=== PATIENT | female | born 1930 | race Caucasian/White ===

== ENCOUNTER 2017-08-27 18:26 | Inpatient (IN) | payer MEDICARE ==
[~2017-08-27] VITALS: Ht 152.4 cm; Wt 70.4 kg
[2017-08-27 20:52] VITALS: BP 137/56
[2017-08-27] MEDS ORDERED: ACETAMINOPHEN 325 MG TABLET PO PRN (21:15)
[2017-08-27] MEDS ORDERED: MAG HYDROX/AL HYDROX/SIMETH 30 ML ORAL.SUSP PO PRN (21:15)
[2017-08-27] MEDS ORDERED: METHYL SALICYLATE/MENTHOL TOPICAL OINTMENT 29GM TUBE. TP PRN (21:15)
[2017-08-27] MEDS ORDERED: MAGNESIUM HYDROXIDE 2,400 MG/30 ML ORAL.SUSP. PO PRN (21:15)
--- NOTE | 2017-08-27 21:41 | HP ---
ADMIT DATE: 08/27/2017 PSYCHIATRIC ADMISSION HISTORY/EVALUATION IDENTIFYING DATA: The patient is an 87-year-old female referred to us from [facility] Room where she presented with her daughter, Hanh Cuellar, who is her court-appointed temporary guardian. The patient has been increasingly paranoid, confused, delusional, refusing medications, accusing family and staff of trying to kill her. She was in an assisted living till the 07/05/2017, getting increasingly agitated there and threw a statue off the balcony at the assisted living. Adjustments in her psychotropics have been attempted, but she has failed all of these resulting in this referral. CHIEF COMPLAINT: "I know about all you people. There is nothing wrong with my mind. People are always trying to do things. They are trying to trick me into things." HISTORY OF PRESENT ILLNESS: The patient has a history of some short-term memory deficits, but more significantly she has been increasingly paranoid, delusional with marked mood lability, irritability. She has had sleep and appetite changes. No active suicidal or homicidal ideation. No clear history of bipolar disorder. PAST PSYCHIATRIC HISTORY: As above. PAST MEDICAL HISTORY: Medical history is positive for recurrent UTIs, hyperlipidemia. ALLERGIES: CODEINE, PENICILLIN, SULFA. She is referred by her primary care physician, Dr. Maldonado, in [facility]. DIET: Regular. Ambulates with a walker. CURRENT PSYCHOTROPICS: EMRAD was reviewed. FAMILY HISTORY: Noncontributory. 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 No alcohol or drug abuse, physical, sexual or elder abuse history is noted. She is not known to be a perpetrator. REACTION TO HOSPITALIZATION: the patient not accepting of it. Her daughter is her guardian, who has arranged this hospitalization. ASSETS: Supportive family. MENTAL STATUS EXAMINATION: The patient was seen individually in her room the evening of 08/27/2017 shortly after she arrived on the unit. She is oriented to herself, unaware of where she was, said she lives in [facility]. Speech is coherent, rapid. Abstraction is fair. Computation is impaired. She refused to answer orientation questions "these a trick questions." She was extremely paranoid about family and everyone around her, quite irritable, labile. Attention span short. Language function intact. No suicidal or homicidal ideation. IMPRESSION: Major depressive disorder with psychotic features; psychotic disorder, unspecified; major neurocognitive disorder, early Alzheimer, vascular with depression, delusion; impulse control disorder. Rest as above. PLAN: Admit to Geropsychiatry Unit at [facility]. I will see the patient daily individually from a psychiatric standpoint. Medical followup per Dr. Kinsey/Dr Shay. Continue the patient on her current psychotropics, observe baseline, then adjust further as clinically indicated. MAN Charli PATTON MD DR: LOBO/rick JOB#: [id number] / [id number]
[2017-08-27] MEDS ORDERED: MEMA5TAB PO (21:49)
[2017-08-27] MEDS ORDERED: PANT40TA5 PO (21:49)
[2017-08-27] MEDS ORDERED: FOLI1TAB16 PO (21:49)
[2017-08-27] MEDS ORDERED: DONE10TA7 PO (21:49)
[2017-08-27] MEDS ORDERED: FURO40TA4 PO (21:49)
[2017-08-27] MEDS ORDERED: ATOR20TA58 PO (21:49)
[2017-08-27] MEDS ORDERED: ASPI-630 PO (21:49)
[2017-08-27] MEDS ORDERED: ESCITALOPRAM OX20 MG PO (21:49)
[2017-08-27] MEDS ORDERED: ASCO500T2 PO (21:49)
[2017-08-27] MEDS ORDERED: CHOL10003 PO (21:49)
[2017-08-27] MEDS ORDERED: MULT-460 PO (21:49)
[2017-08-27] MEDS ORDERED: LOSA100T6 PO (21:49)
[2017-08-27] MEDS ORDERED: CEPH500C PO (21:53)
--- NOTE | 2017-08-27 22:54 | PDOC ---
Exam Note: Abrahan Note: Please also refer to the separate dictated note~for this date of service dictated separately.~Patient seen individually. Discussed the patient with Nursing staff reviewed the chart.~Reviewed interim history and current functioning. Reviewed vital signs,~Labs/ Radiology~and current medications noted below. Continue current treatment with the changes noted in the dictated addendum note Assessment: Vital Signs: Vital Signs Date Time Temp Pulse Resp B/P (MAP) Pulse Ox O2 Delivery O2 Flow Rate FiO2 08/27/17 20:52 97.5 63 18 137/56 (83) 99 Current Medications: Meds: Current Medications Acetaminophen (Tylenol) 650 mg PRN Q6HRS PRN PO PAIN / TEMP; Start 08/27/17 at 21:15 Multi-Ingredient Ointment (Analgesic [place]) 1 vidhi PRN QID PRN TP MUSCLE PAIN; Start 08/27/17 at 21:15 Al Hydroxide/Mg Hydroxide (Mylanta Plus Xs) 15 ml PRN AFTMEALHC PRN PO DYSPEPSIA; Start 08/27/17 at 21:15 Magnesium Hydroxide (Milk Of Magnesia) 2,400 mg PRN QHS PRN PO CONSTIPATION; Start 08/27/17 at 21:15 Olanzapine (ZyPREXA ZYDIS) 2.5 mg PRN Q2HR PRN PO ANXIETY / AGITATION; Start at 21:15 Donepezil HCl (Aricept) 10 mg DAILY PO ; Start 08/28/17 at 09:00 Citalopram Hydrobromide (CeleXA) 40 mg DAILY PO ; Start 08/28/17 at 09:00 Memantine (Namenda) 5 mg DAILY PO ; Start 08/28/17 at 09:00 Active Scripts Active Reported Cephalexin 500 Mg Capsule 500 Mg PO TIDX7 DAYS Multiple Vitamin (Multivitamin With Minerals) 1 Each Tablet 1 Tab PO DAILY Folic Acid 1 Mg Tablet 1 Mg PO DAILY Vitamin D3 (Cholecalciferol (Vitamin D3)) 1,000 Unit Tablet 2,000 Unit PO DAILY Aspirin 81 Mg Tab.chew 81 Mg PO DAILY Vitamin C (Ascorbic Acid) 500 Mg Tablet 500 Mg PO DAILY Pantoprazole Sodium 40 Mg Tablet.dr 40 Mg PO DAILY Namenda (Memantine Hcl) 5 Mg Tablet 5 Mg PO DAILY Losartan Potassium 100 Mg Tablet 100 Mg PO DAILY Furosemide 40 Mg Tablet 40 Mg PO DAILY Escitalopram Oxalate 20 Mg Tablet 20 Mg PO DAILY Donepezil Hcl 10 Mg Tablet 10 Mg PO DAILY Atorvastatin Calcium 20 Mg Tablet 20 Mg PO QHS I have reviewed the current psychotropics carefully including drug interactions. Risk benefit ratio favors no change other than as noted in my dictated progress note. Diagnosis: Problems: (1) Anxiety disorder (2) Dementia, vascular, with delusions (3) Dementia, vascular, with depression (4) Impulse control disorder (5) Psychosis, atypical (6) Mild cognitive disorder (7) Major depressive disorder, recurrent episode KENDRA PATTON MD August 27, 2017 22:54
[2017-08-28 05:20] VITALS: BP 138/62
[2017-08-28] MEDS: DONEPEZIL HCL 10 MG TABLET PO SCH (07:51)
[2017-08-28 08:52] LABS: BASO # 0.1 x10^3/uL (0.0-0.2); BASO % 1 % (0-3); EOS # 0.5 x10^3/uL (0.0-0.7); EOS % 9 % (0-3); HEMATOCRIT 35.8 % (36.0-47.0); HEMOGLOBIN 12.1 g/dL (12.0-15.5); LYMPH # 1.4 x10^3/uL (1.0-4.8); LYMPH % 26 % (24-48); MEAN CORPUSCULAR HEMOGLOBIN 31 pg (25-35); MEAN CORPUSCULAR HGB CONC 34 g/dL (31-37); MEAN CORPUSCULAR VOLUME 91 fL (79-100); MONO # 0.5 x10^3/uL (0.0-1.1); MONO % 9 % (0-9); NEUT # 2.9 x10^3uL (1.8-7.7); NEUT % 55 % (31-73); PLATELET COUNT 327 x10^3/uL (140-400); RED BLOOD COUNT 3.93 x10^6/uL (3.50-5.40); RED CELL DISTRIBUTION WIDTH 15.4 % (11.5-14.5); WHITE BLOOD COUNT 5.2 x10^3/uL (4.0-11.0)
[2017-08-28] MEDS ORDERED: CITALOPRAM 20 MG TABLET. PO SCH (09:00)
[2017-08-28] MEDS ORDERED: MEMANTINE 5 MG TABLET. PO SCH (09:00)
[2017-08-28 09:09] LABS: ALBUMIN 3.4 g/dL (3.4-5.0); ALBUMIN/GLOBULIN RATIO 0.9 (1.0-1.7); CALCIUM 9.3 mg/dL (8.5-10.1); CREATININE 1.1 mg/dL (0.6-1.0); GFR 46.8; MAGNESIUM 2.1 mg/dL (1.8-2.4); POTASSIUM 3.9 mmol/L (3.5-5.1); TOTAL BILIRUBIN 0.8 mg/dL (0.2-1.0); TOTAL PROTEIN 7.3 g/dL (6.4-8.2)
[2017-08-28 10:18] LABS: THYROID STIM HORMONE (TSH) 4.595 uIU/mL (0.358-3.740)
[2017-08-28 14:07] LABS: T3 TOTAL 108 ng/dL (71-180); THYROXINE 8.2 ug/dL (4.5-12.0)
[2017-08-28] MEDS: CEPHALEXIN 250 MG CAPSULE PO SCH ×2 (15:44→20:46)
--- NOTE | 2017-08-28 16:30 | PDOC1 ---
History of Present Illness Reason for Visit: Paranoid History of Present Illness Pt sent to [facility] for evaluation in [facility] unit due to being paranoid and delusional. Pt has reportedly been accusing family and staff of trying to kill her. Apparently this started about 2 weeks ago. Pt is a poor historian and does not give any meaningful history, other than "I want to go home, get me out of here. " Per nursing, she has been doing ok since receiving a PRN dose of Zyprexa earlier today. Allergies: Coded Allergies: Penicillins (Verified Allergy, Unknown, 08/27/17) Sulfa (Sulfonamide Antibiotics) (Verified Allergy, Unknown, 08/27/17) codeine (Verified Allergy, Unknown, 08/27/17) Past Medical History Cardiac: hyperipidemia Psych: Depression Renal/: UTI Past Surgical History: No pertinent history Family History: No pertinent hx Past Social History Smoke: No Alcohol: none Drugs: None Lives: Alone Review of Systems Review Of Systems ROS unobtainable due to pt's mental status Medications Current Medications Acetaminophen (Tylenol) 650 mg PRN Q6HRS PRN PO PAIN / TEMP; Start 08/27/17 at 21:15 Multi-Ingredient Ointment (Analgesic [place]) 1 vidhi PRN QID PRN TP MUSCLE PAIN; Start 08/27/17 at 21:15 Al Hydroxide/Mg Hydroxide (Mylanta Plus Xs) 15 ml PRN AFTMEALHC PRN PO DYSPEPSIA; Start 08/27/17 at 21:15 Magnesium Hydroxide (Milk Of Magnesia) 2,400 mg PRN QHS PRN PO CONSTIPATION; Start 08/27/17 at 21:15 Olanzapine (ZyPREXA ZYDIS) 2.5 mg PRN Q2HR PRN PO ANXIETY / AGITATION Last administered on 08/28/17at 07:51; Start 08/27/17 at 21:15 Donepezil HCl (Aricept) 10 mg DAILY PO Last administered on 08/28/17at 07:51; Start 08/28/17 at 09:00 Citalopram Hydrobromide (CeleXA) 40 mg DAILY PO Last administered on 08/28/17at 07:51; Start 08/28/17 at 09:00 Memantine (Namenda) 5 mg DAILY PO Last administered on 08/28/17at 07:51; Start 08/28/17 at 09:00 Ascorbic Acid (Vitamin C) 500 mg DAILY PO ; Start 08/29/17 at 09:00 Atorvastatin Calcium (Lipitor) 20 mg QHS PO ; Start 08/28/17 at 21:00 Vitamin D (Vitamin D3) 2,000 unit DAILY PO ; Start 08/29/17 at 09:00 Aspirin (Children'S Aspirin) 81 mg DAILYWBKFT PO ; Start 08/29/17 at 08:00 Cephalexin HCl (Keflex) 500 mg TID PO Last administered on 08/28/17at 15:44; Start 08/28/17 at 14:00; Stop 09/04/17 at 14:01 Folic Acid (Folic Acid) 1 mg DAILY PO ; Start 08/29/17 at 09:00 Furosemide (Lasix) 40 mg DAILY PO ; Start 08/29/17 at 09:00 Losartan Potassium (Cozaar) 100 mg DAILY PO ; Start 08/29/17 at 09:00 Multivitamins/ Calcium (Thera-M Plus) 1 tab DAILY PO ; Start 08/29/17 at 09:00 Pantoprazole Sodium (Protonix) 40 mg DAILY PO ; Start 08/29/17 at 09:00 Active Scripts Active Reported Cephalexin 500 Mg Capsule 500 Mg PO TIDX7 DAYS Multiple Vitamin (Multivitamin With Minerals) 1 Each Tablet 1 Tab PO DAILY Folic Acid 1 Mg Tablet 1 Mg PO DAILY Vitamin D3 (Cholecalciferol (Vitamin D3)) 1,000 Unit Tablet 2,000 Unit PO DAILY Aspirin 81 Mg Tab.chew 81 Mg PO DAILY Vitamin C (Ascorbic Acid) 500 Mg Tablet 500 Mg PO DAILY Pantoprazole Sodium 40 Mg Tablet.dr 40 Mg PO DAILY Namenda (Memantine Hcl) 5 Mg Tablet 5 Mg PO DAILY Losartan Potassium 100 Mg Tablet 100 Mg PO DAILY Furosemide 40 Mg Tablet 40 Mg PO DAILY Escitalopram Oxalate 20 Mg Tablet 20 Mg PO DAILY Donepezil Hcl 10 Mg Tablet 10 Mg PO DAILY Atorvastatin Calcium 20 Mg Tablet 20 Mg PO QHS Exam Vital Signs Vital Signs Date Time Temp Pulse Resp B/P (MAP) Pulse Ox O2 Delivery O2 Flow Rate FiO2 08/28/17 05:20 97.4 62 16 138/62 (87) 98 General Appearance: Alert, Cooperative, No acute distress, Other (Oriented to person only) HEENT: Atraumatic, PERRLA, EOMI, Mucous membr. moist/pink, Other (Neck without JVD or LAD) Respiratory: Clear to auscultation Heart: Regular rate, Normal S1, Normal S2, No murmurs Abdominal: Normal bowel sounds, Soft, No tenderness, No hepatospenomegaly, No masses Extremities: No clubbing, No cyanosis, Normal pulses, No tenderness/swelling, Other (Mild BLE edema, 1-2+) Skin: No rashes, No breakdown Neuro: Other (No focal abnormalities) Psych/Mental Status: Other (Stable, confused) Assessment/Plan Assessment/Plan Dementia w/ behaviors: Per Dr. Campo HLP: Cont home meds Low TSH: No change in meds, f/u on T4. Elevated alk phos: Add GGT, recheck in AM. Hx UTI: Await urine sample. dVT proph: Pt is ambulatory, no indication for pharmacologic prophylaxis COURSE Allergies Coded Allergies Type Severity Reaction Last Updated Verified Penicillins Allergy Unknown 08/27/17 Yes Sulfa (Sulfonamide Antibiotics) Allergy Unknown 08/27/17 Yes codeine Allergy Unknown 08/27/17 Yes Laboratory Tests Test 08/28/17 07:50 White Blood Count 5.2 x10^3/uL (4.0-11.0) Red Blood Count 3.93 x10^6/uL (3.50-5.40) Hemoglobin 12.1 g/dL (12.0-15.5) Hematocrit 35.8 % (36.0-47.0) Mean Corpuscular Volume 91 fL (79-100) Mean Corpuscular Hemoglobin 31 pg (25-35) Mean Corpuscular Hemoglobin Concent 34 g/dL (31-37) Red Cell Distribution Width 15.4 % (11.5-14.5) Platelet Count 327 x10^3/uL (140-400) Neutrophils (%) (Auto) 55 % (31-73) Lymphocytes (%) (Auto) 26 % (24-48) Monocytes (%) (Auto) 9 % (0-9) Eosinophils (%) (Auto) 9 % (0-3) Basophils (%) (Auto) 1 % (0-3) Neutrophils # (Auto) 2.9 x10^3uL (1.8-7.7) Lymphocytes # (Auto) 1.4 x10^3/uL (1.0-4.8) Monocytes # (Auto) 0.5 x10^3/uL (0.0-1.1) Eosinophils # (Auto) 0.5 x10^3/uL (0.0-0.7) Basophils # (Auto) 0.1 x10^3/uL (0.0-0.2) Sodium Level 140 mmol/L (136-145) Potassium Level 3.9 mmol/L (3.5-5.1) Chloride Level 103 mmol/L (98-107) Carbon Dioxide Level 26 mmol/L (21-32) Anion Gap 11 (6-14) Blood Urea Nitrogen 19 mg/dL (7-20) Creatinine 1.1 mg/dL (0.6-1.0) Estimated GFR (Cockcroft-Gault) 46.8 BUN/Creatinine Ratio 17 (6-20) Glucose Level 97 mg/dL (70-99) Calcium Level 9.3 mg/dL (8.5-10.1) Magnesium Level 2.1 mg/dL (1.8-2.4) Iron Level 89 ug/dL (50-170) Total Iron Binding Capacity 279 ug/dL (250-450) Iron Saturation 32 % (15-34) Total Bilirubin 0.8 mg/dL (0.2-1.0) Aspartate Amino Transf (AST/SGOT) 23 U/L (15-37) Alanine Aminotransferase (ALT/SGPT) 19 U/L (14-59) Alkaline Phosphatase 194 U/L (46-116) Total Protein 7.3 g/dL (6.4-8.2) Albumin 3.4 g/dL (3.4-5.0) Albumin/Globulin Ratio 0.9 (1.0-1.7) Triglycerides Level 86 mg/dL (0-150) Cholesterol Level 129 mg/dL (0-200) LDL Cholesterol, Calculated 74 mg/dL (0-100) VLDL Cholesterol, Calculated 17 mg/dL (0-40) Non-HDL Cholesterol Calculated 91 mg/dL (0-129) HDL Cholesterol 38 mg/dL (40-60) Cholesterol/HDL Ratio 3.0 Thyroid Stimulating Hormone (TSH) 4.595 uIU/mL (0.358-3.740) Thyroxine (T4) 8.2 ug/dL (4.5-12.0) Total Triiodothyronine 108 ng/dL (71-180) Current Medications Medications (Trade) Dose Ordered Sig/Yovany Route PRN Reason Start Time Stop Time Status Last Admin Dose Admin Acetaminophen (Tylenol) 650 mg PRN Q6HRS PRN PO PAIN / TEMP 08/27/17 21:15 Multi-Ingredient Ointment (Analgesic [place]) 1 vidhi PRN QID PRN TP MUSCLE PAIN 08/27/17 21:15 Al Hydroxide/Mg Hydroxide (Mylanta Plus Xs) 15 ml PRN AFTMEALHC PRN PO DYSPEPSIA 08/27/17 21:15 Magnesium Hydroxide (Milk Of Magnesia) 2,400 mg PRN QHS PRN PO CONSTIPATION 08/27/17 21:15 Olanzapine (ZyPREXA ZYDIS) 2.5 mg PRN Q2HR PRN PO ANXIETY / AGITATION 08/27/17 21:15 08/28/17 07:51 Donepezil HCl (Aricept) 10 mg DAILY PO 08/28/17 09:00 08/28/17 07:51 Citalopram Hydrobromide (CeleXA) 40 mg DAILY PO 08/28/17 09:00 08/28/17 07:51 Memantine (Namenda) 5 mg DAILY PO 08/28/17 09:00 08/28/17 07:51 Ascorbic Acid (Vitamin C) 500 mg DAILY PO 08/29/17 09:00 Atorvastatin Calcium (Lipitor) 20 mg QHS PO 08/28/17 21:00 Vitamin D (Vitamin D3) 2,000 unit DAILY PO 08/29/17 09:00 Aspirin (Children'S Aspirin) 81 mg DAILYWBKFT PO 08/29/17 08:00 Cephalexin HCl (Keflex) 500 mg TID PO 08/28/17 14:00 09/04/17 14:01 08/28/17 15:44 Folic Acid (Folic Acid) 1 mg DAILY PO 08/29/17 09:00 Furosemide (Lasix) 40 mg DAILY PO 08/29/17 09:00 Losartan Potassium (Cozaar) 100 mg DAILY PO 08/29/17 09:00 Multivitamins/ Calcium (Thera-M Plus) 1 tab DAILY PO 08/29/17 09:00 Pantoprazole Sodium (Protonix) 40 mg DAILY PO 08/29/17 09:00 I & O 08/28/17 00:00 Intake Total 0 ml Balance 0 ml Vital Signs Date Time Temp Pulse Resp B/P (MAP) Pulse Ox O2 Delivery O2 Flow Rate FiO2 08/28/17 05:20 97.4 62 16 138/62 (87) 98 RAISSA ARAYA MD August 28, 2017 16:30
[2017-08-28 16:48] VITALS: BP 102/52
[2017-08-28] MEDS: ATORVASTATIN CALCIUM 20 MG TABLET PO SCH (20:49)
[2017-08-28] MEDS: MEMANTINE 5 MG TABLET. PO SCH (20:49)
--- NOTE | 2017-08-28 20:53 | PDOC ---
Exam Note: Abrahan Note: Please also refer to the separate dictated note~for this date of service dictated separately.~Patient seen individually. Discussed the patient with Nursing staff reviewed the chart.~Reviewed interim history and current functioning. Reviewed vital signs,~Labs/ Radiology~and current medications noted below. Continue current treatment with the changes noted in the dictated addendum note Assessment: Vital Signs: Vital Signs Date Time Temp Pulse Resp B/P (MAP) Pulse Ox O2 Delivery O2 Flow Rate FiO2 08/28/17 16:48 98.0 63 16 102/52 (69) 98 I&O Intake and Output 08/28/17 07:00 Intake Total 0 ml Balance 0 ml Intake Oral 0 ml Labs: Laboratory Tests Test 08/28/17 07:50 08/28/17 17:35 White Blood Count 5.2 x10^3/uL (4.0-11.0) Red Blood Count 3.93 x10^6/uL (3.50-5.40) Hemoglobin 12.1 g/dL (12.0-15.5) Hematocrit 35.8 % (36.0-47.0) L Mean Corpuscular Volume 91 fL (79-100) Mean Corpuscular Hemoglobin 31 pg (25-35) Mean Corpuscular Hemoglobin Concent 34 g/dL (31-37) Red Cell Distribution Width 15.4 % (11.5-14.5) H Platelet Count 327 x10^3/uL (140-400) Neutrophils (%) (Auto) 55 % (31-73) Lymphocytes (%) (Auto) 26 % (24-48) Monocytes (%) (Auto) 9 % (0-9) Eosinophils (%) (Auto) 9 % (0-3) H Basophils (%) (Auto) 1 % (0-3) Neutrophils # (Auto) 2.9 x10^3uL (1.8-7.7) Lymphocytes # (Auto) 1.4 x10^3/uL (1.0-4.8) Monocytes # (Auto) 0.5 x10^3/uL (0.0-1.1) Eosinophils # (Auto) 0.5 x10^3/uL (0.0-0.7) Basophils # (Auto) 0.1 x10^3/uL (0.0-0.2) Sodium Level 140 mmol/L (136-145) Potassium Level 3.9 mmol/L (3.5-5.1) Chloride Level 103 mmol/L (98-107) Carbon Dioxide Level 26 mmol/L (21-32) Anion Gap 11 (6-14) Blood Urea Nitrogen 19 mg/dL (7-20) Creatinine 1.1 mg/dL (0.6-1.0) H Estimated GFR (Cockcroft-Gault) 46.8 BUN/Creatinine Ratio 17 (6-20) Glucose Level 97 mg/dL (70-99) Calcium Level 9.3 mg/dL (8.5-10.1) Magnesium Level 2.1 mg/dL (1.8-2.4) Iron Level 89 ug/dL (50-170) Total Iron Binding Capacity 279 ug/dL (250-450) Iron Saturation 32 % (15-34) Total Bilirubin 0.8 mg/dL (0.2-1.0) Aspartate Amino Transferase (AST) 23 U/L (15-37) Alanine Aminotransferase (ALT) 19 U/L (14-59) Alkaline Phosphatase 194 U/L (46-116) H Total Protein 7.3 g/dL (6.4-8.2) Albumin 3.4 g/dL (3.4-5.0) Albumin/Globulin Ratio 0.9 (1.0-1.7) L Triglycerides Level 86 mg/dL (0-150) Cholesterol Level 129 mg/dL (0-200) LDL Cholesterol, Calculated 74 mg/dL (0-100) VLDL Cholesterol, Calculated 17 mg/dL (0-40) Non-HDL Cholesterol Calculated 91 mg/dL (0-129) HDL Cholesterol 38 mg/dL (40-60) L Cholesterol/HDL Ratio 3.0 Thyroid Stimulating Hormone (TSH) 4.595 uIU/mL (0.358-3.740) Thyroxine (T4) 8.2 ug/dL (4.5-12.0) Total Triiodothyronine (TT3) 108 ng/dL (71-180) Rapid Plasma Reagin Pending Gamma Glutamyl Transpeptidase 17 U/L (5-55) Current Medications: Meds: Current Medications Acetaminophen (Tylenol) 650 mg PRN Q6HRS PRN PO PAIN / TEMP; Start 08/27/17 at 21:15 Multi-Ingredient Ointment (Analgesic [place]) 1 vidhi PRN QID PRN TP MUSCLE PAIN; Start 08/27/17 at 21:15 Al Hydroxide/Mg Hydroxide (Mylanta Plus Xs) 15 ml PRN AFTMEALHC PRN PO DYSPEPSIA; Start 08/27/17 at 21:15 Magnesium Hydroxide (Milk Of Magnesia) 2,400 mg PRN QHS PRN PO CONSTIPATION; Start 08/27/17 at 21:15 Olanzapine (ZyPREXA ZYDIS) 2.5 mg PRN Q2HR PRN PO ANXIETY / AGITATION Last administered on 08/28/17at 07:51; Start 08/27/17 at 21:15 Donepezil HCl (Aricept) 10 mg DAILY PO Last administered on 08/28/17at 07:51; Start 08/28/17 at 09:00 Citalopram Hydrobromide (CeleXA) 40 mg DAILY PO Last administered on 08/28/17at 07:51; Start 08/28/17 at 09:00; Stop 08/28/17 at 20:09; Status DC Memantine (Namenda) 5 mg DAILY PO Last administered on 08/28/17at 07:51; Start 08/28/17 at 09:00; Stop 08/28/17 at 20:09; Status DC Ascorbic Acid (Vitamin C) 500 mg DAILY PO ; Start 08/29/17 at 09:00 Atorvastatin Calcium (Lipitor) 20 mg QHS PO Last administered on 08/28/17at 20: 49; Start 08/28/17 at 21:00 Vitamin D (Vitamin D3) 2,000 unit DAILY PO ; Start 08/29/17 at 09:00 Aspirin (Children'S Aspirin) 81 mg DAILYWBKFT PO ; Start 08/29/17 at 08:00 Cephalexin HCl (Keflex) 500 mg TID PO Last administered on 08/28/17at 20:46; Start 08/28/17 at 14:00; Stop 09/04/17 at 14:01 Folic Acid (Folic Acid) 1 mg DAILY PO ; Start 08/29/17 at 09:00 Furosemide (Lasix) 40 mg DAILY PO ; Start 08/29/17 at 09:00 Losartan Potassium (Cozaar) 100 mg DAILY PO ; Start 08/29/17 at 09:00 Multivitamins/ Calcium (Thera-M Plus) 1 tab DAILY PO ; Start 08/29/17 at 09:00 Pantoprazole Sodium (Protonix) 40 mg DAILY PO ; Start 08/29/17 at 09:00 Memantine (Namenda) 5 mg BID PO Last administered on 08/28/17at 20:49; Start at 21:00 Quetiapine Fumarate (SEROquel) 12.5 mg BID@0900,1300 PO ; Start 08/29/17 at 09: 00 Duloxetine HCl (Cymbalta) 30 mg DAILY PO ; Start 08/29/17 at 09:00 Active Scripts Active Reported Cephalexin 500 Mg Capsule 500 Mg PO TIDX7 DAYS Multiple Vitamin (Multivitamin With Minerals) 1 Each Tablet 1 Tab PO DAILY Folic Acid 1 Mg Tablet 1 Mg PO DAILY Vitamin D3 (Cholecalciferol (Vitamin D3)) 1,000 Unit Tablet 2,000 Unit PO DAILY Aspirin 81 Mg Tab.chew 81 Mg PO DAILY Vitamin C (Ascorbic Acid) 500 Mg Tablet 500 Mg PO DAILY Pantoprazole Sodium 40 Mg Tablet.dr 40 Mg PO DAILY Namenda (Memantine Hcl) 5 Mg Tablet 5 Mg PO DAILY Losartan Potassium 100 Mg Tablet 100 Mg PO DAILY Furosemide 40 Mg Tablet 40 Mg PO DAILY Escitalopram Oxalate 20 Mg Tablet 20 Mg PO DAILY Donepezil Hcl 10 Mg Tablet 10 Mg PO DAILY Atorvastatin Calcium 20 Mg Tablet 20 Mg PO QHS I have reviewed the current psychotropics carefully including drug interactions. Risk benefit ratio favors no change other than as noted in my dictated progress note. Diagnosis: Problems: (1) Anxiety disorder (2) Dementia, vascular, with delusions (3) Dementia, vascular, with depression (4) Impulse control disorder (5) Psychosis, atypical (6) Mild cognitive disorder (7) Major depressive disorder, recurrent episode KENDRA PATTON MD August 28, 2017 20:53
[2017-08-28 22:07] LABS: HEMOGLOBIN A1C 5.4 % (4.8-5.6)
[2017-08-29 05:59] VITALS: BP 137/61
[2017-08-29] MEDS: DONEPEZIL HCL 10 MG TABLET PO SCH (08:07)
[2017-08-29] MEDS: CEPHALEXIN 250 MG CAPSULE PO SCH ×3 (08:07→20:21)
[2017-08-29] MEDS: MEMANTINE 5 MG TABLET. PO SCH ×2 (08:07→20:21)
[2017-08-29] MEDS: FOLIC ACID 1 MG TABLET PO SCH (08:14)
[2017-08-29] MEDS: FUROSEMIDE 40 MG TABLET PO SCH (08:14)
[2017-08-29] MEDS: CHOLECALCIFEROL (VITAMIN D3) 1,000 UNIT TABLET PO SCH (08:14)
[2017-08-29] MEDS: ASPIRIN 81 MG TAB.CHEW PO SCH (08:14)
[2017-08-29] MEDS: DULoxetine HCL 30 MG CAPSULE.DR PO SCH (08:14)
[2017-08-29] MEDS: PANTOPRAZOLE 40 MG TABLET. PO SCH (08:14)
[2017-08-29] MEDS: ASCORBIC ACID 500 MG TABLET PO SCH (08:14)
[2017-08-29] MEDS: MULTIVITAMIN with MINERAL TABLET. PO SCH (08:14)
[2017-08-29] MEDS: LOSARTAN 50 MG TABLET. PO SCH (08:15)
[2017-08-29 08:47] LABS: ALBUMIN 3.1 g/dL (3.4-5.0); ALBUMIN/GLOBULIN RATIO 0.8 (1.0-1.7); CREATININE 1.1 mg/dL (0.6-1.0); GFR 46.8; TOTAL BILIRUBIN 0.6 mg/dL (0.2-1.0); TOTAL PROTEIN 6.9 g/dL (6.4-8.2)
[2017-08-29] MEDS: QUEtiapine 25 MG TABLET. PO SCH ×2 (09:44→13:02)
[2017-08-29 15:56] VITALS: BP 122/74
[2017-08-29] MEDS: ATORVASTATIN CALCIUM 20 MG TABLET PO SCH (20:21)
[2017-08-29] MEDS: LACTOBACILLUS RHAMNOSUS GG 1 CAPSULE. PO SCH (20:24)
--- NOTE | 2017-08-29 20:57 | PDOC ---
Exam Note: Abrahan Note: Please also refer to the separate dictated note~for this date of service dictated separately.~Patient seen individually. Discussed the patient with Nursing staff reviewed the chart.~Reviewed interim history and current functioning. Reviewed vital signs,~Labs/ Radiology~and current medications noted below. Continue current treatment with the changes noted in the dictated addendum note Assessment: Vital Signs: Vital Signs Date Time Temp Pulse Resp B/P (MAP) Pulse Ox O2 Delivery O2 Flow Rate FiO2 08/29/17 15:56 97.7 65 18 122/74 (90) 96 I&O Intake and Output 08/29/17 07:00 Intake Total 720 ml Balance 720 ml Intake Oral 720 ml Labs: Laboratory Tests Test 08/29/17 07:24 Sodium Level 142 mmol/L (136-145) Potassium Level 4.0 mmol/L (3.5-5.1) Chloride Level 104 mmol/L (98-107) Carbon Dioxide Level 29 mmol/L (21-32) Anion Gap 9 (6-14) Blood Urea Nitrogen 19 mg/dL (7-20) Creatinine 1.1 mg/dL (0.6-1.0) H Estimated GFR (Cockcroft-Gault) 46.8 BUN/Creatinine Ratio 17 (6-20) Glucose Level 89 mg/dL (70-99) Calcium Level 9.0 mg/dL (8.5-10.1) Total Bilirubin 0.6 mg/dL (0.2-1.0) Aspartate Amino Transferase (AST) 20 U/L (15-37) Alanine Aminotransferase (ALT) 17 U/L (14-59) Alkaline Phosphatase 190 U/L (46-116) H Total Protein 6.9 g/dL (6.4-8.2) Albumin 3.1 g/dL (3.4-5.0) L Albumin/Globulin Ratio 0.8 (1.0-1.7) L Current Medications: Meds: Current Medications Acetaminophen (Tylenol) 650 mg PRN Q6HRS PRN PO PAIN / TEMP Last administered on 08/28/17at 20:59; Start 08/27/17 at 21:15 Multi-Ingredient Ointment (Analgesic [place]) 1 vidhi PRN QID PRN TP MUSCLE PAIN; Start 08/27/17 at 21:15 Al Hydroxide/Mg Hydroxide (Mylanta Plus Xs) 15 ml PRN AFTMEALHC PRN PO DYSPEPSIA; Start 08/27/17 at 21:15 Magnesium Hydroxide (Milk Of Magnesia) 2,400 mg PRN QHS PRN PO CONSTIPATION; Start 08/27/17 at 21:15 Olanzapine (ZyPREXA ZYDIS) 2.5 mg PRN Q2HR PRN PO ANXIETY / AGITATION Last administered on 08/28/17at 07:51; Start 08/27/17 at 21:15 Donepezil HCl (Aricept) 10 mg DAILY PO Last administered on 08/29/17at 08:07; Start 08/28/17 at 09:00 Citalopram Hydrobromide (CeleXA) 40 mg DAILY PO Last administered on 08/28/17at 07:51; Start 08/28/17 at 09:00; Stop 08/28/17 at 20:09; Status DC Memantine (Namenda) 5 mg DAILY PO Last administered on 08/28/17at 07:51; Start 08/28/17 at 09:00; Stop 08/28/17 at 20:09; Status DC Ascorbic Acid (Vitamin C) 500 mg DAILY PO Last administered on 08/29/17at 08:14 ; Start 08/29/17 at 09:00 Atorvastatin Calcium (Lipitor) 20 mg QHS PO Last administered on 08/29/17 20: 21; Start 08/28/17 at 21:00 Vitamin D (Vitamin D3) 2,000 unit DAILY PO Last administered on 08/29/17at 08:14 ; Start 08/29/17 at 09:00 Aspirin (Children'S Aspirin) 81 mg DAILYWBKFT PO Last administered on at 08:14; Start 08/29/17 at 08:00 Cephalexin HCl (Keflex) 500 mg TID PO Last administered on 08/29/17 20:21; Start 08/28/17 at 14:00; Stop 09/04/17 at 14:01 Folic Acid (Folic Acid) 1 mg DAILY PO Last administered on 08/29/17at 08:14; Start 08/29/17 at 09:00 Furosemide (Lasix) 40 mg DAILY PO Last administered on 08/29/17at 08:14; Start 08/29/17 at 09:00 Losartan Potassium (Cozaar) 100 mg DAILY PO Last administered on 08/29/17 08: 15; Start 08/29/17 at 09:00 Multivitamins/ Calcium (Thera-M Plus) 1 tab DAILY PO Last administered on at 08:14; Start 08/29/17 at 09:00 Pantoprazole Sodium (Protonix) 40 mg DAILY PO Last administered on 08/29/17 08 :14; Start 08/29/17 at 09:00 Memantine (Namenda) 5 mg BID PO Last administered on 08/29/17at 20:21; Start at 21:00 Quetiapine Fumarate (SEROquel) 12.5 mg BID@0900,1300 PO Last administered on 13:02; Start 08/29/17 at 09:00 Duloxetine HCl (Cymbalta) 30 mg DAILY PO Last administered on 08/29/17at 08:14; Start 08/29/17 at 09:00 Lactobacillus Rhamnosus (Culturelle) 1 cap BID PO Last administered on at 20:24; Start 08/29/17 at 21:00 Active Scripts Active Reported Cephalexin 500 Mg Capsule 500 Mg PO TIDX7 DAYS Multiple Vitamin (Multivitamin With Minerals) 1 Each Tablet 1 Tab PO DAILY Folic Acid 1 Mg Tablet 1 Mg PO DAILY Vitamin D3 (Cholecalciferol (Vitamin D3)) 1,000 Unit Tablet 2,000 Unit PO DAILY Aspirin 81 Mg Tab.chew 81 Mg PO DAILY Vitamin C (Ascorbic Acid) 500 Mg Tablet 500 Mg PO DAILY Pantoprazole Sodium 40 Mg Tablet.dr 40 Mg PO DAILY Namenda (Memantine Hcl) 5 Mg Tablet 5 Mg PO DAILY Losartan Potassium 100 Mg Tablet 100 Mg PO DAILY Furosemide 40 Mg Tablet 40 Mg PO DAILY Escitalopram Oxalate 20 Mg Tablet 20 Mg PO DAILY Donepezil Hcl 10 Mg Tablet 10 Mg PO DAILY Atorvastatin Calcium 20 Mg Tablet 20 Mg PO QHS I have reviewed the current psychotropics carefully including drug interactions. Risk benefit ratio favors no change other than as noted in my dictated progress note. Diagnosis: Problems: (1) Anxiety disorder (2) Dementia, vascular, with delusions (3) Dementia, vascular, with depression (4) Impulse control disorder (5) Psychosis, atypical (6) Mild cognitive disorder (7) Major depressive disorder, recurrent episode KENDRA PATTON MD August 29, 2017 20:57
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
[2017-08-30 06:26] VITALS: BP 131/58
[2017-08-30] MEDS: ASPIRIN 81 MG TAB.CHEW PO SCH (08:16)
[2017-08-30] MEDS: CHOLECALCIFEROL (VITAMIN D3) 1,000 UNIT TABLET PO SCH (08:16)
[2017-08-30] MEDS: MEMANTINE 5 MG TABLET. PO SCH ×2 (08:16→20:27)
[2017-08-30] MEDS: DULoxetine HCL 30 MG CAPSULE.DR PO SCH (08:16)
[2017-08-30] MEDS: QUEtiapine 25 MG TABLET. PO SCH ×2 (08:17→12:17)
[2017-08-30] MEDS: FUROSEMIDE 40 MG TABLET PO SCH (08:17)
[2017-08-30] MEDS: DONEPEZIL HCL 10 MG TABLET PO SCH (08:18)
[2017-08-30] MEDS: FOLIC ACID 1 MG TABLET PO SCH (08:18)
[2017-08-30] MEDS: CEPHALEXIN 250 MG CAPSULE PO SCH ×3 (08:18→20:27)
[2017-08-30] MEDS: MULTIVITAMIN with MINERAL TABLET. PO SCH (08:18)
[2017-08-30] MEDS: LACTOBACILLUS RHAMNOSUS GG 1 CAPSULE. PO SCH ×2 (08:18→20:26)
[2017-08-30] MEDS: PANTOPRAZOLE 40 MG TABLET. PO SCH (08:18)
[2017-08-30] MEDS: ASCORBIC ACID 500 MG TABLET PO SCH (08:18)
[2017-08-30] MEDS: LOSARTAN 50 MG TABLET. PO SCH (08:19)
[2017-08-30 16:39] VITALS: BP 97/55
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
--- NOTE | 2017-08-30 20:25 | PDOC ---
Exam Note: Abrahan Note: Please also refer to the separate dictated note~for this date of service dictated separately.~Patient seen individually. Discussed the patient with Nursing staff reviewed the chart.~Reviewed interim history and current functioning. Reviewed vital signs,~Labs/ Radiology~and current medications noted below. Continue current treatment with the changes noted in the dictated addendum note Assessment: Vital Signs: Vital Signs Date Time Temp Pulse Resp B/P (MAP) Pulse Ox O2 Delivery O2 Flow Rate FiO2 08/30/17 16:39 97.8 74 16 97/55 (69) 97 I&O Intake and Output 08/30/17 07:00 Intake Total 960 ml Balance 960 ml Intake Oral 960 ml Current Medications: Meds: Current Medications Acetaminophen (Tylenol) 650 mg PRN Q6HRS PRN PO PAIN / TEMP Last administered on 08/28/17at 20:59; Start 08/27/17 at 21:15 Multi-Ingredient Ointment (Analgesic [place]) 1 vidhi PRN QID PRN TP MUSCLE PAIN; Start 08/27/17 at 21:15 Al Hydroxide/Mg Hydroxide (Mylanta Plus Xs) 15 ml PRN AFTMEALHC PRN PO DYSPEPSIA; Start 08/27/17 at 21:15 Magnesium Hydroxide (Milk Of Magnesia) 2,400 mg PRN QHS PRN PO CONSTIPATION; Start 08/27/17 at 21:15 Olanzapine (ZyPREXA ZYDIS) 2.5 mg PRN Q2HR PRN PO ANXIETY / AGITATION Last administered on 08/28/17at 07:51; Start 08/27/17 at 21:15 Donepezil HCl (Aricept) 10 mg DAILY PO Last administered on 08/30/17at 08:18; Start 08/28/17 at 09:00 Citalopram Hydrobromide (CeleXA) 40 mg DAILY PO Last administered on 08/28/17at 07:51; Start 08/28/17 at 09:00; Stop 08/28/17 at 20:09; Status DC Memantine (Namenda) 5 mg DAILY PO Last administered on 08/28/17at 07:51; Start 08/28/17 at 09:00; Stop 08/28/17 at 20:09; Status DC Ascorbic Acid (Vitamin C) 500 mg DAILY PO Last administered on 08/30/17 08:18 ; Start 08/29/17 at 09:00 Atorvastatin Calcium (Lipitor) 20 mg QHS PO Last administered on 08/29/17 20: 21; Start 08/28/17 at 21:00 Vitamin D (Vitamin D3) 2,000 unit DAILY PO Last administered on 08/30/17 08:16 ; Start 08/29/17 at 09:00 Aspirin (Children'S Aspirin) 81 mg DAILYWBKFT PO Last administered on 08:16; Start 08/29/17 at 08:00 Cephalexin HCl (Keflex) 500 mg TID PO Last administered on 08/30/17 12:16; Start 08/28/17 at 14:00; Stop 09/04/17 at 14:01 Folic Acid (Folic Acid) 1 mg DAILY PO Last administered on 08/30/17 08:18; Start 08/29/17 at 09:00 Furosemide (Lasix) 40 mg DAILY PO Last administered on 08/30/17 08:17; Start 08/29/17 at 09:00 Losartan Potassium (Cozaar) 100 mg DAILY PO Last administered on 08/30/17 08: 19; Start 08/29/17 at 09:00 Multivitamins/ Calcium (Thera-M Plus) 1 tab DAILY PO Last administered on 08:18; Start 08/29/17 at 09:00 Pantoprazole Sodium (Protonix) 40 mg DAILY PO Last administered on 08/30/17 08 :18; Start 08/29/17 at 09:00 Memantine (Namenda) 5 mg BID PO Last administered on 08/30/17 08:16; Start at 21:00 Quetiapine Fumarate (SEROquel) 12.5 mg BID@0900,1300 PO Last administered on 12:17; Start 08/29/17 at 09:00 Duloxetine HCl (Cymbalta) 30 mg DAILY PO Last administered on 08/30/17 08:16; Start 08/29/17 at 09:00 Lactobacillus Rhamnosus (Culturelle) 1 cap BID PO Last administered on 08:18; Start 08/29/17 at 21:00 Active Scripts Active Reported Cephalexin 500 Mg Capsule 500 Mg PO TIDX7 DAYS Multiple Vitamin (Multivitamin With Minerals) 1 Each Tablet 1 Tab PO DAILY Folic Acid 1 Mg Tablet 1 Mg PO DAILY Vitamin D3 (Cholecalciferol (Vitamin D3)) 1,000 Unit Tablet 2,000 Unit PO DAILY Aspirin 81 Mg Tab.chew 81 Mg PO DAILY Vitamin C (Ascorbic Acid) 500 Mg Tablet 500 Mg PO DAILY Pantoprazole Sodium 40 Mg Tablet.dr 40 Mg PO DAILY Namenda (Memantine Hcl) 5 Mg Tablet 5 Mg PO DAILY Losartan Potassium 100 Mg Tablet 100 Mg PO DAILY Furosemide 40 Mg Tablet 40 Mg PO DAILY Escitalopram Oxalate 20 Mg Tablet 20 Mg PO DAILY Donepezil Hcl 10 Mg Tablet 10 Mg PO DAILY Atorvastatin Calcium 20 Mg Tablet 20 Mg PO QHS I have reviewed the current psychotropics carefully including drug interactions. Risk benefit ratio favors no change other than as noted in my dictated progress note. Diagnosis: Problems: (1) Anxiety disorder (2) Dementia, vascular, with delusions (3) Dementia, vascular, with depression (4) Impulse control disorder (5) Psychosis, atypical (6) Mild cognitive disorder (7) Major depressive disorder, recurrent episode KENDRA PATTON MD August 30, 2017 20:25
[2017-08-30] MEDS: ATORVASTATIN CALCIUM 20 MG TABLET PO SCH (20:26)
[2017-08-31 05:56] VITALS: BP 117/58
[2017-08-31] MEDS: CHOLECALCIFEROL (VITAMIN D3) 1,000 UNIT TABLET PO SCH (08:43)
[2017-08-31] MEDS: CEPHALEXIN 250 MG CAPSULE PO SCH ×3 (08:43→20:14)
[2017-08-31] MEDS: PANTOPRAZOLE 40 MG TABLET. PO SCH (08:43)
[2017-08-31] MEDS: ASCORBIC ACID 500 MG TABLET PO SCH (08:43)
[2017-08-31] MEDS: LACTOBACILLUS RHAMNOSUS GG 1 CAPSULE. PO SCH ×2 (08:43→20:14)
[2017-08-31] MEDS: QUEtiapine 25 MG TABLET. PO SCH ×2 (08:43→13:45)
[2017-08-31] MEDS: MEMANTINE 5 MG TABLET. PO SCH (08:44)
[2017-08-31] MEDS: FOLIC ACID 1 MG TABLET PO SCH (08:44)
[2017-08-31] MEDS: DULoxetine HCL 30 MG CAPSULE.DR PO SCH (08:44)
[2017-08-31] MEDS: DONEPEZIL HCL 10 MG TABLET PO SCH (08:44)
[2017-08-31] MEDS: ASPIRIN 81 MG TAB.CHEW PO SCH (08:44)
[2017-08-31] MEDS: MULTIVITAMIN with MINERAL TABLET. PO SCH (08:44)
[2017-08-31] MEDS: FUROSEMIDE 40 MG TABLET PO SCH (08:44)
[2017-08-31] MEDS: LOSARTAN 50 MG TABLET. PO SCH (08:45)
[2017-08-31 18:28] VITALS: BP 136/53
[2017-08-31] MEDS: ATORVASTATIN CALCIUM 20 MG TABLET PO SCH (20:13)
[2017-08-31] MEDS: MEMANTINE 10 MG TABLET. PO SCH (20:15)
[2017-08-31] MEDS ORDERED: MICONAZOLE NITRATE 2% TOPICAL CREAM 14GM TUBE. TP SCH (21:00)
--- NOTE | 2017-08-31 22:21 | PDOC ---
Exam Note: Abrahan Note: Please also refer to the separate dictated note~for this date of service dictated separately.~Patient seen individually. Discussed the patient with Nursing staff reviewed the chart.~Reviewed interim history and current functioning. Reviewed vital signs,~Labs/ Radiology~and current medications noted below. Continue current treatment with the changes noted in the dictated addendum note Assessment: Vital Signs: Vital Signs Date Time Temp Pulse Resp B/P (MAP) Pulse Ox O2 Delivery O2 Flow Rate FiO2 08/31/17 18:28 97.6 70 18 136/53 (80) 99 I&O Intake and Output 08/31/17 07:00 Intake Total 1260 ml Balance 1260 ml Intake Oral 1260 ml Current Medications: Meds: Current Medications Acetaminophen (Tylenol) 650 mg PRN Q6HRS PRN PO PAIN / TEMP Last administered on 08/28/17at 20:59; Start 08/27/17 at 21:15 Multi-Ingredient Ointment (Analgesic [place]) 1 vidhi PRN QID PRN TP MUSCLE PAIN; Start 08/27/17 at 21:15 Al Hydroxide/Mg Hydroxide (Mylanta Plus Xs) 15 ml PRN AFTMEALHC PRN PO DYSPEPSIA; Start 08/27/17 at 21:15 Magnesium Hydroxide (Milk Of Magnesia) 2,400 mg PRN QHS PRN PO CONSTIPATION; Start 08/27/17 at 21:15 Olanzapine (ZyPREXA ZYDIS) 2.5 mg PRN Q2HR PRN PO ANXIETY / AGITATION Last administered on 08/28/17at 07:51; Start 08/27/17 at 21:15 Donepezil HCl (Aricept) 10 mg DAILY PO Last administered on 08/31/17at 08:44; Start 08/28/17 at 09:00 Citalopram Hydrobromide (CeleXA) 40 mg DAILY PO Last administered on 08/28/17at 07:51; Start 08/28/17 at 09:00; Stop 08/28/17 at 20:09; Status DC Memantine (Namenda) 5 mg DAILY PO Last administered on 08/28/17at 07:51; Start 08/28/17 at 09:00; Stop 08/28/17 at 20:09; Status DC Ascorbic Acid (Vitamin C) 500 mg DAILY PO Last administered on 08/31/17 08:43 ; Start 08/29/17 at 09:00 Atorvastatin Calcium (Lipitor) 20 mg QHS PO Last administered on 08/31/17 20: 13; Start 08/28/17 at 21:00 Vitamin D (Vitamin D3) 2,000 unit DAILY PO Last administered on 08/31/17 08:43 ; Start 08/29/17 at 09:00 Aspirin (Children'S Aspirin) 81 mg DAILYWBKFT PO Last administered on 08:44; Start 08/29/17 at 08:00 Cephalexin HCl (Keflex) 500 mg TID PO Last administered on 08/31/17 20:14; Start 08/28/17 at 14:00; Stop 09/04/17 at 14:01 Folic Acid (Folic Acid) 1 mg DAILY PO Last administered on 08/31/17 08:44; Start 08/29/17 at 09:00 Furosemide (Lasix) 40 mg DAILY PO Last administered on 08/31/17 08:44; Start 08/29/17 at 09:00 Losartan Potassium (Cozaar) 100 mg DAILY PO Last administered on 08/31/17 08: 45; Start 08/29/17 at 09:00 Multivitamins/ Calcium (Thera-M Plus) 1 tab DAILY PO Last administered on 08:44; Start 08/29/17 at 09:00 Pantoprazole Sodium (Protonix) 40 mg DAILY PO Last administered on 08/31/17 08 :43; Start 08/29/17 at 09:00 Memantine (Namenda) 5 mg BID PO Last administered on 08/31/17 08:44; Start at 21:00; Stop 08/31/17 at 14:17; Status DC Quetiapine Fumarate (SEROquel) 12.5 mg BID@0900,1300 PO Last administered on 13:45; Start 08/29/17 at 09:00 Duloxetine HCl (Cymbalta) 30 mg DAILY PO Last administered on 08/31/17 08:44; Start 08/29/17 at 09:00 Lactobacillus Rhamnosus (Culturelle) 1 cap BID PO Last administered on 20:14; Start 08/29/17 at 21:00 Memantine (Namenda) 10 mg BID PO Last administered on 08/31/17at 20:15; Start at 21:00 Miconazole Nitrate (Monistat-Derm) 1 vidhi BID TP ; Start 08/31/17 at 21:00; Stop 08/31/17 at 21:00; Status DC Active Scripts Active Reported Cephalexin 500 Mg Capsule 500 Mg PO TIDX7 DAYS Multiple Vitamin (Multivitamin With Minerals) 1 Each Tablet 1 Tab PO DAILY Folic Acid 1 Mg Tablet 1 Mg PO DAILY Vitamin D3 (Cholecalciferol (Vitamin D3)) 1,000 Unit Tablet 2,000 Unit PO DAILY Aspirin 81 Mg Tab.chew 81 Mg PO DAILY Vitamin C (Ascorbic Acid) 500 Mg Tablet 500 Mg PO DAILY Pantoprazole Sodium 40 Mg Tablet.dr 40 Mg PO DAILY Namenda (Memantine Hcl) 5 Mg Tablet 5 Mg PO DAILY Losartan Potassium 100 Mg Tablet 100 Mg PO DAILY Furosemide 40 Mg Tablet 40 Mg PO DAILY Escitalopram Oxalate 20 Mg Tablet 20 Mg PO DAILY Donepezil Hcl 10 Mg Tablet 10 Mg PO DAILY Atorvastatin Calcium 20 Mg Tablet 20 Mg PO QHS I have reviewed the current psychotropics carefully including drug interactions. Risk benefit ratio favors no change other than as noted in my dictated progress note. Diagnosis: Problems: (1) Anxiety disorder (2) Dementia, vascular, with delusions (3) Dementia, vascular, with depression (4) Impulse control disorder (5) Psychosis, atypical (6) Mild cognitive disorder (7) Major depressive disorder, recurrent episode KENDRA PATTON MD August 31, 2017 22:21
--- NOTE | 2017-09-01 03:16 | PN ---
DATE: 08/30/2017 This is a late entry of 08/30/2017 covers elements not covered in my initial note of 08/30/2017. SUBJECTIVE: I met with the patient in the evening. The patient slept 7-1/2 hours. The patient remains somewhat delusional, compliant with medications. Appetite is fair. REVIEW OF SYSTEMS: No CV, , pulmonary, eye system symptoms on review. MENTAL STATUS EXAM: Oriented to herself and situation. Speech is coherent, abstraction fair, computation impaired, language function intact, attention span short. Mood and affect remains somewhat anxious, labile. Other times, somewhat withdrawn. No active suicidal or homicidal ideation. She does have UTI on Keflex. LABORATORY DATA: Reviewed. IMPRESSION: Major neurocognitive disorder, Alzheimer, vascular with delusion, depression; anxiety disorder, unspecified; impulse control disorder, unspecified. Rest unchanged from above. PLAN: Increase Namenda from 5 mg b.i.d. to 10 mg b.i.d. Continue rest of the psychotropics including the Seroquel 12.5 mg b.i.d. Rest unchanged from initial note. MAN Charli PATTON MD DR: LOBO/rick JOB#: [id number] / [id number]
[2017-09-01 06:12] VITALS: BP 118/53
[2017-09-01] MEDS: LOSARTAN 50 MG TABLET. PO SCH (09:38)
[2017-09-01] MEDS: CHOLECALCIFEROL (VITAMIN D3) 1,000 UNIT TABLET PO SCH (09:38)
[2017-09-01] MEDS: ASPIRIN 81 MG TAB.CHEW PO SCH (09:39)
[2017-09-01] MEDS: MULTIVITAMIN with MINERAL TABLET. PO SCH (09:39)
[2017-09-01] MEDS: QUEtiapine 25 MG TABLET. PO SCH ×3 (09:39→15:53)
[2017-09-01] MEDS: FOLIC ACID 1 MG TABLET PO SCH (09:39)
[2017-09-01] MEDS: MEMANTINE 10 MG TABLET. PO SCH ×2 (09:39→21:18)
[2017-09-01] MEDS: DULoxetine HCL 30 MG CAPSULE.DR PO SCH (09:39)
[2017-09-01] MEDS: DONEPEZIL HCL 10 MG TABLET PO SCH (09:39)
[2017-09-01] MEDS: PANTOPRAZOLE 40 MG TABLET. PO SCH (09:40)
[2017-09-01] MEDS: CEPHALEXIN 250 MG CAPSULE PO SCH ×3 (09:40→21:18)
[2017-09-01] MEDS: ASCORBIC ACID 500 MG TABLET PO SCH (09:40)
[2017-09-01] MEDS: FUROSEMIDE 40 MG TABLET PO SCH (09:40)
[2017-09-01] MEDS: LACTOBACILLUS RHAMNOSUS GG 1 CAPSULE. PO SCH ×2 (09:40→21:18)
--- NOTE | 2017-09-01 09:52 | RAD ---
Bilateral lower extremity venous duplex study 09/01/2017 7:40 AM Clinical History: Bilateral lower extremity edema Comparison: None Technique: Using a combination of real time ultrasound imaging and color-flow and pulse Doppler imaging techniques along with graded compression and augmentation, duplex evaluation of the deep venous system of the both lower extremities was performed. Multiple images were obtained. Findings: There is no sonographic evidence of deep venous thrombosis involving the visualized deep venous structures of either lower extremity. Impression: No evidence of deep venous thrombosis involving either lower extremity Electronically signed by: Shant Richardson MD (09/01/2017 9:48 AM) [id number]
[2017-09-01 16:55] VITALS: BP 167/50
--- NOTE | 2017-09-01 20:23 | PDOC ---
Exam Note: Abrahan Note: Please also refer to the separate dictated note~for this date of service dictated separately.~Patient seen individually. Discussed the patient with Nursing staff reviewed the chart.~Reviewed interim history and current functioning. Reviewed vital signs,~Labs/ Radiology~and current medications noted below. Continue current treatment with the changes noted in the dictated addendum note Assessment: Vital Signs: Vital Signs Date Time Temp Pulse Resp B/P (MAP) Pulse Ox O2 Delivery O2 Flow Rate FiO2 09/01/17 16:55 97.0 68 20 167/50 (89) 94 Room Air I&O Intake and Output 09/01/17 07:00 Intake Total 1080 ml Balance 1080 ml Intake Oral 1080 ml Current Medications: Meds: Current Medications Acetaminophen (Tylenol) 650 mg PRN Q6HRS PRN PO PAIN / TEMP Last administered on 08/28/17at 20:59; Start 08/27/17 at 21:15 Multi-Ingredient Ointment (Analgesic [place]) 1 vidhi PRN QID PRN TP MUSCLE PAIN; Start 08/27/17 at 21:15 Al Hydroxide/Mg Hydroxide (Mylanta Plus Xs) 15 ml PRN AFTMEALHC PRN PO DYSPEPSIA; Start 08/27/17 at 21:15 Magnesium Hydroxide (Milk Of Magnesia) 2,400 mg PRN QHS PRN PO CONSTIPATION; Start 08/27/17 at 21:15 Olanzapine (ZyPREXA ZYDIS) 2.5 mg PRN Q2HR PRN PO ANXIETY / AGITATION Last administered on 08/28/17at 07:51; Start 08/27/17 at 21:15 Donepezil HCl (Aricept) 10 mg DAILY PO Last administered on 09/01/17at 09:39; Start 08/28/17 at 09:00 Citalopram Hydrobromide (CeleXA) 40 mg DAILY PO Last administered on 08/28/17 07:51; Start 08/28/17 at 09:00; Stop 08/28/17 at 20:09; Status DC Memantine (Namenda) 5 mg DAILY PO Last administered on 08/28/17at 07:51; Start 08/28/17 at 09:00; Stop 08/28/17 at 20:09; Status DC Ascorbic Acid (Vitamin C) 500 mg DAILY PO Last administered on 5/17/18at 09:40 ; Start 08/29/17 at 09:00 Atorvastatin Calcium (Lipitor) 20 mg QHS PO Last administered on 08/31/17 20: 13; Start 08/28/17 at 21:00 Vitamin D (Vitamin D3) 2,000 unit DAILY PO Last administered on 09/01/17 09:38 ; Start 08/29/17 at 09:00 Aspirin (Children'S Aspirin) 81 mg DAILYWBKFT PO Last administered on 09:39; Start 08/29/17 at 08:00 Cephalexin HCl (Keflex) 500 mg TID PO Last administered on 09/01/17 14:11; Start 08/28/17 at 14:00; Stop 09/04/17 at 14:01 Folic Acid (Folic Acid) 1 mg DAILY PO Last administered on 09/01/17 09:39; Start 08/29/17 at 09:00 Furosemide (Lasix) 40 mg DAILY PO Last administered on 09/01/17 09:40; Start 08/29/17 at 09:00 Losartan Potassium (Cozaar) 100 mg DAILY PO Last administered on 09/01/17 09: 38; Start 08/29/17 at 09:00 Multivitamins/ Calcium (Thera-M Plus) 1 tab DAILY PO Last administered on 09:39; Start 08/29/17 at 09:00 Pantoprazole Sodium (Protonix) 40 mg DAILY PO Last administered on 09/01/17 09 :40; Start 08/29/17 at 09:00 Memantine (Namenda) 5 mg BID PO Last administered on 08/31/17 08:44; Start at 21:00; Stop 08/31/17 at 14:17; Status DC Quetiapine Fumarate (SEROquel) 12.5 mg BID@0900,1300 PO Last administered on at 09:39; Start 08/29/17 at 09:00 Duloxetine HCl (Cymbalta) 30 mg DAILY PO Last administered on 09/01/17 09:39; Start 08/29/17 at 09:00 Lactobacillus Rhamnosus (Culturelle) 1 cap BID PO Last administered on 09:40; Start 08/29/17 at 21:00 Memantine (Namenda) 10 mg BID PO Last administered on 09/01/17at 09:39; Start at 21:00 Miconazole Nitrate (Monistat-Derm) 1 vidhi BID TP ; Start 08/31/17 at 21:00; Stop 08/31/17 at 21:00; Status DC Quetiapine Fumarate (SEROquel) 25 mg QHS PO ; Start 09/01/17 at 21:00 Active Scripts Active Reported Cephalexin 500 Mg Capsule 500 Mg PO TIDX7 DAYS Multiple Vitamin (Multivitamin With Minerals) 1 Each Tablet 1 Tab PO DAILY Folic Acid 1 Mg Tablet 1 Mg PO DAILY Vitamin D3 (Cholecalciferol (Vitamin D3)) 1,000 Unit Tablet 2,000 Unit PO DAILY Aspirin 81 Mg Tab.chew 81 Mg PO DAILY Vitamin C (Ascorbic Acid) 500 Mg Tablet 500 Mg PO DAILY Pantoprazole Sodium 40 Mg Tablet.dr 40 Mg PO DAILY Namenda (Memantine Hcl) 5 Mg Tablet 5 Mg PO DAILY Losartan Potassium 100 Mg Tablet 100 Mg PO DAILY Furosemide 40 Mg Tablet 40 Mg PO DAILY Escitalopram Oxalate 20 Mg Tablet 20 Mg PO DAILY Donepezil Hcl 10 Mg Tablet 10 Mg PO DAILY Atorvastatin Calcium 20 Mg Tablet 20 Mg PO QHS I have reviewed the current psychotropics carefully including drug interactions. Risk benefit ratio favors no change other than as noted in my dictated progress note. Diagnosis: Problems: (1) Anxiety disorder (2) Dementia, vascular, with delusions (3) Dementia, vascular, with depression (4) Impulse control disorder (5) Psychosis, atypical (6) Mild cognitive disorder (7) Major depressive disorder, recurrent episode KENDRA PATTON MD September 01, 2017 20:23
[2017-09-01] MEDS ORDERED: QUEtiapine 25 MG TABLET. PO SCH (21:00)
[2017-09-01] MEDS: ATORVASTATIN CALCIUM 20 MG TABLET PO SCH (21:18)
[2017-09-02 05:37] VITALS: BP 133/61
[2017-09-02] MEDS: ASPIRIN 81 MG TAB.CHEW PO SCH (08:42)
[2017-09-02] MEDS: PANTOPRAZOLE 40 MG TABLET. PO SCH (08:42)
[2017-09-02] MEDS: QUEtiapine 25 MG TABLET. PO SCH ×2 (08:42→14:06)
[2017-09-02] MEDS: ASCORBIC ACID 500 MG TABLET PO SCH (08:43)
[2017-09-02] MEDS: LACTOBACILLUS RHAMNOSUS GG 1 CAPSULE. PO SCH ×2 (08:43→21:00)
[2017-09-02] MEDS: FOLIC ACID 1 MG TABLET PO SCH (08:43)
[2017-09-02] MEDS: CHOLECALCIFEROL (VITAMIN D3) 1,000 UNIT TABLET PO SCH (08:43)
[2017-09-02] MEDS: DONEPEZIL HCL 10 MG TABLET PO SCH (08:43)
[2017-09-02] MEDS: MULTIVITAMIN with MINERAL TABLET. PO SCH (08:43)
[2017-09-02] MEDS: LOSARTAN 50 MG TABLET. PO SCH (08:43)
[2017-09-02] MEDS: MEMANTINE 10 MG TABLET. PO SCH ×2 (08:43→21:00)
[2017-09-02] MEDS: CEPHALEXIN 250 MG CAPSULE PO SCH ×3 (08:43→21:00)
[2017-09-02] MEDS: FUROSEMIDE 40 MG TABLET PO SCH (08:43)
[2017-09-02] MEDS: DULoxetine HCL 30 MG CAPSULE.DR PO SCH (08:43)
[2017-09-02 16:27] VITALS: BP 121/55
[2017-09-02] MEDS: ATORVASTATIN CALCIUM 20 MG TABLET PO SCH (21:00)
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
[2017-09-03 06:18] VITALS: BP 132/89
[2017-09-03] MEDS: LACTOBACILLUS RHAMNOSUS GG 1 CAPSULE. PO SCH ×2 (11:18→20:36)
[2017-09-03] MEDS: FOLIC ACID 1 MG TABLET PO SCH (11:18)
[2017-09-03] MEDS: DONEPEZIL HCL 10 MG TABLET PO SCH (11:19)
[2017-09-03] MEDS: LOSARTAN 50 MG TABLET. PO SCH (11:20)
[2017-09-03] MEDS: CHOLECALCIFEROL (VITAMIN D3) 1,000 UNIT TABLET PO SCH (11:20)
[2017-09-03] MEDS: ASPIRIN 81 MG TAB.CHEW PO SCH (11:20)
[2017-09-03] MEDS: MEMANTINE 10 MG TABLET. PO SCH ×2 (11:21→20:36)
[2017-09-03] MEDS: FUROSEMIDE 40 MG TABLET PO SCH (11:21)
[2017-09-03] MEDS: MULTIVITAMIN with MINERAL TABLET. PO SCH (11:21)
[2017-09-03] MEDS: PANTOPRAZOLE 40 MG TABLET. PO SCH (11:21)
[2017-09-03] MEDS: CEPHALEXIN 250 MG CAPSULE PO SCH ×3 (11:21→20:37)
[2017-09-03] MEDS: ASCORBIC ACID 500 MG TABLET PO SCH (11:21)
[2017-09-03] MEDS: DULoxetine HCL 30 MG CAPSULE.DR PO SCH (11:21)
[2017-09-03] MEDS: risperiDONE 0.25 MG TABLET. PO SCH ×3 (11:22→17:41)
[2017-09-03 16:41] VITALS: BP 107/55
[2017-09-03] MEDS: ATORVASTATIN CALCIUM 20 MG TABLET PO SCH (20:36)
--- NOTE | 2017-09-03 22:56 | PDOC ---
Exam Note: Abrahan Note: Late entry for date of service September 02, 2017. Please also refer to the separate dictated note~for this date of service dictated separately.~Patient seen individually. Discussed the patient with Nursing staff reviewed the chart.~ Reviewed interim history and current functioning. Reviewed vital signs,~Labs/ Radiology~and current medications noted below. Continue current treatment with the changes noted in the dictated addendum note Assessment: Vital Signs: VS - Last 72 Hours, by Label Date Time Temp Pulse Resp B/P (MAP) Pulse Ox O2 Delivery O2 Flow Rate FiO2 09/03/17 16:41 98.1 89 22 107/55 (72) 97 09/03/17 11:20 76 132/89 09/03/17 06:18 99.2 76 18 132/89 (103) 100 09/02/17 16:27 97.9 76 18 121/55 (77) 97 09/02/17 08:43 75 133/61 09/02/17 05:37 98.0 75 19 133/61 (85) 98 09/01/17 16:55 97.0 68 20 167/50 (89) 94 Room Air 09/01/17 09:38 73 118/53 09/01/17 06:12 98.0 73 18 118/53 (74) 92 Vital Signs Date Time Temp Pulse Resp B/P (MAP) Pulse Ox O2 Delivery O2 Flow Rate FiO2 09/03/17 16:41 98.1 89 22 107/55 (72) 97 09/01/17 16:55 Room Air I&O Intake and Output 09/03/17 07:00 Intake Total 1080 ml Balance 1080 ml Intake Oral 1080 ml Current Medications: Meds: Current Medications Acetaminophen (Tylenol) 650 mg PRN Q6HRS PRN PO PAIN / TEMP Last administered on 08/28/17at 20:59; Start 08/27/17 at 21:15 Multi-Ingredient Ointment (Analgesic [place]) 1 vidhi PRN QID PRN TP MUSCLE PAIN; Start 08/27/17 at 21:15 Al Hydroxide/Mg Hydroxide (Mylanta Plus Xs) 15 ml PRN AFTMEALHC PRN PO DYSPEPSIA; Start 08/27/17 at 21:15 Magnesium Hydroxide (Milk Of Magnesia) 2,400 mg PRN QHS PRN PO CONSTIPATION; Start 08/27/17 at 21:15 Olanzapine (ZyPREXA ZYDIS) 2.5 mg PRN Q2HR PRN PO ANXIETY / AGITATION Last administered on 08/28/17 07:51; Start 08/27/17 at 21:15 Donepezil HCl (Aricept) 10 mg DAILY PO Last administered on 09/03/17 11:19; Start 08/28/17 at 09:00 Citalopram Hydrobromide (CeleXA) 40 mg DAILY PO Last administered on 08/28/17 07:51; Start 08/28/17 at 09:00; Stop 08/28/17 at 20:09; Status DC Memantine (Namenda) 5 mg DAILY PO Last administered on 08/28/17 07:51; Start 08/28/17 at 09:00; Stop 08/28/17 at 20:09; Status DC Ascorbic Acid (Vitamin C) 500 mg DAILY PO Last administered on 09/03/17 11:21 ; Start 08/29/17 at 09:00 Atorvastatin Calcium (Lipitor) 20 mg QHS PO Last administered on 09/03/17at 20: 36; Start 08/28/17 at 21:00 Vitamin D (Vitamin D3) 2,000 unit DAILY PO Last administered on 09/03/17 11:20 ; Start 08/29/17 at 09:00 Aspirin (Children'S Aspirin) 81 mg DAILYWBKFT PO Last administered on 11:20; Start 08/29/17 at 08:00 Cephalexin HCl (Keflex) 500 mg TID PO Last administered on 09/03/17at 20:37; Start 08/28/17 at 14:00; Stop 09/04/17 at 14:01 Folic Acid (Folic Acid) 1 mg DAILY PO Last administered on 09/03/17 11:18; Start 08/29/17 at 09:00 Furosemide (Lasix) 40 mg DAILY PO Last administered on 09/03/17 11:21; Start 08/29/17 at 09:00 Losartan Potassium (Cozaar) 100 mg DAILY PO Last administered on 09/03/17 11: 20; Start 08/29/17 at 09:00 Multivitamins/ Calcium (Thera-M Plus) 1 tab DAILY PO Last administered on 5/19/ 18at 11:21; Start 08/29/17 at 09:00 Pantoprazole Sodium (Protonix) 40 mg DAILY PO Last administered on 09/03/17at 11 :21; Start 08/29/17 at 09:00 Memantine (Namenda) 5 mg BID PO Last administered on 08/31/17at 08:44; Start at 21:00; Stop 08/31/17 at 14:17; Status DC Quetiapine Fumarate (SEROquel) 12.5 mg BID@0900,1300 PO Last administered on at 14:06; Start 08/29/17 at 09:00; Stop 09/02/17 at 19:27; Status DC Duloxetine HCl (Cymbalta) 30 mg DAILY PO Last administered on 09/03/17at 11:21; Start 08/29/17 at 09:00 Lactobacillus Rhamnosus (Culturelle) 1 cap BID PO Last administered on at 20:36; Start 08/29/17 at 21:00 Memantine (Namenda) 10 mg BID PO Last administered on 09/03/17at 20:36; Start at 21:00 Miconazole Nitrate (Monistat-Derm) 1 vidhi BID TP ; Start 08/31/17 at 21:00; Stop 08/31/17 at 21:00; Status DC Quetiapine Fumarate (SEROquel) 25 mg QHS PO Last administered on 09/01/17at 21: 28; Start 09/01/17 at 21:00; Stop 09/02/17 at 19:27; Status DC Risperidone (RisperDAL) 0.125 mg TID@0900,1300,1700 PO Last administered on at 17:41; Start 09/03/17 at 09:00 Active Scripts Active Reported Cephalexin 500 Mg Capsule 500 Mg PO TIDX7 DAYS Multiple Vitamin (Multivitamin With Minerals) 1 Each Tablet 1 Tab PO DAILY Folic Acid 1 Mg Tablet 1 Mg PO DAILY Vitamin D3 (Cholecalciferol (Vitamin D3)) 1,000 Unit Tablet 2,000 Unit PO DAILY Aspirin 81 Mg Tab.chew 81 Mg PO DAILY Vitamin C (Ascorbic Acid) 500 Mg Tablet 500 Mg PO DAILY Pantoprazole Sodium 40 Mg Tablet.dr 40 Mg PO DAILY Namenda (Memantine Hcl) 5 Mg Tablet 5 Mg PO DAILY Losartan Potassium 100 Mg Tablet 100 Mg PO DAILY Furosemide 40 Mg Tablet 40 Mg PO DAILY Escitalopram Oxalate 20 Mg Tablet 20 Mg PO DAILY Donepezil Hcl 10 Mg Tablet 10 Mg PO DAILY Atorvastatin Calcium 20 Mg Tablet 20 Mg PO QHS I have reviewed the current psychotropics carefully including drug interactions. Risk benefit ratio favors no change other than as noted in my dictated progress note. Diagnosis: Problems: (1) Anxiety disorder (2) Dementia, vascular, with delusions (3) Dementia, vascular, with depression (4) Impulse control disorder (5) Psychosis, atypical (6) Mild cognitive disorder (7) Major depressive disorder, recurrent episode KENDRA PATTON MD September 03, 2017 22:56
--- NOTE | 2017-09-03 23:23 | PDOC ---
Exam Note: Abrahan Note: Please also refer to the separate dictated note~for this date of service dictated separately.~Patient seen individually. Discussed the patient with Nursing staff reviewed the chart.~Reviewed interim history and current functioning. Reviewed vital signs,~Labs/ Radiology~and current medications noted below. Continue current treatment with the changes noted in the dictated addendum note Assessment: Vital Signs: Vital Signs Date Time Temp Pulse Resp B/P (MAP) Pulse Ox O2 Delivery O2 Flow Rate FiO2 09/03/17 16:41 98.1 89 22 107/55 (72) 97 09/01/17 16:55 Room Air I&O Intake and Output 09/03/17 07:00 Intake Total 1080 ml Balance 1080 ml Intake Oral 1080 ml Current Medications: Meds: Current Medications Acetaminophen (Tylenol) 650 mg PRN Q6HRS PRN PO PAIN / TEMP Last administered on 08/28/17at 20:59; Start 08/27/17 at 21:15 Multi-Ingredient Ointment (Analgesic [place]) 1 vidhi PRN QID PRN TP MUSCLE PAIN; Start 08/27/17 at 21:15 Al Hydroxide/Mg Hydroxide (Mylanta Plus Xs) 15 ml PRN AFTMEALHC PRN PO DYSPEPSIA; Start 08/27/17 at 21:15 Magnesium Hydroxide (Milk Of Magnesia) 2,400 mg PRN QHS PRN PO CONSTIPATION; Start 08/27/17 at 21:15 Olanzapine (ZyPREXA ZYDIS) 2.5 mg PRN Q2HR PRN PO ANXIETY / AGITATION Last administered on 08/28/17at 07:51; Start 08/27/17 at 21:15 Donepezil HCl (Aricept) 10 mg DAILY PO Last administered on 09/03/17at 11:19; Start 08/28/17 at 09:00 Citalopram Hydrobromide (CeleXA) 40 mg DAILY PO Last administered on 08/28/17at 07:51; Start 08/28/17 at 09:00; Stop 08/28/17 at 20:09; Status DC Memantine (Namenda) 5 mg DAILY PO Last administered on 08/28/17at 07:51; Start 08/28/17 at 09:00; Stop 08/28/17 at 20:09; Status DC Ascorbic Acid (Vitamin C) 500 mg DAILY PO Last administered on 09/03/17 11:21 ; Start 08/29/17 at 09:00 Atorvastatin Calcium (Lipitor) 20 mg QHS PO Last administered on 09/03/17 20: 36; Start 08/28/17 at 21:00 Vitamin D (Vitamin D3) 2,000 unit DAILY PO Last administered on 09/03/17 11:20 ; Start 08/29/17 at 09:00 Aspirin (Children'S Aspirin) 81 mg DAILYWBKFT PO Last administered on 11:20; Start 08/29/17 at 08:00 Cephalexin HCl (Keflex) 500 mg TID PO Last administered on 09/03/17 20:37; Start 08/28/17 at 14:00; Stop 09/04/17 at 14:01 Folic Acid (Folic Acid) 1 mg DAILY PO Last administered on 09/03/17 11:18; Start 08/29/17 at 09:00 Furosemide (Lasix) 40 mg DAILY PO Last administered on 09/03/17 11:21; Start 08/29/17 at 09:00 Losartan Potassium (Cozaar) 100 mg DAILY PO Last administered on 09/03/17 11: 20; Start 08/29/17 at 09:00 Multivitamins/ Calcium (Thera-M Plus) 1 tab DAILY PO Last administered on 11:21; Start 08/29/17 at 09:00 Pantoprazole Sodium (Protonix) 40 mg DAILY PO Last administered on 09/03/17 11 :21; Start 08/29/17 at 09:00 Memantine (Namenda) 5 mg BID PO Last administered on 08/31/17at 08:44; Start at 21:00; Stop 08/31/17 at 14:17; Status DC Quetiapine Fumarate (SEROquel) 12.5 mg BID@0900,1300 PO Last administered on at 14:06; Start 08/29/17 at 09:00; Stop 09/02/17 at 19:27; Status DC Duloxetine HCl (Cymbalta) 30 mg DAILY PO Last administered on 09/03/17 11:21; Start 08/29/17 at 09:00 Lactobacillus Rhamnosus (Culturelle) 1 cap BID PO Last administered on at 20:36; Start 08/29/17 at 21:00 Memantine (Namenda) 10 mg BID PO Last administered on 09/03/17at 20:36; Start at 21:00 Miconazole Nitrate (Monistat-Derm) 1 vidhi BID TP ; Start 08/31/17 at 21:00; Stop 08/31/17 at 21:00; Status DC Quetiapine Fumarate (SEROquel) 25 mg QHS PO Last administered on 09/01/17at 21: 28; Start 09/01/17 at 21:00; Stop 09/02/17 at 19:27; Status DC Risperidone (RisperDAL) 0.125 mg TID@0900,1300,1700 PO Last administered on at 17:41; Start 09/03/17 at 09:00 Active Scripts Active Reported Cephalexin 500 Mg Capsule 500 Mg PO TIDX7 DAYS Multiple Vitamin (Multivitamin With Minerals) 1 Each Tablet 1 Tab PO DAILY Folic Acid 1 Mg Tablet 1 Mg PO DAILY Vitamin D3 (Cholecalciferol (Vitamin D3)) 1,000 Unit Tablet 2,000 Unit PO DAILY Aspirin 81 Mg Tab.chew 81 Mg PO DAILY Vitamin C (Ascorbic Acid) 500 Mg Tablet 500 Mg PO DAILY Pantoprazole Sodium 40 Mg Tablet.dr 40 Mg PO DAILY Namenda (Memantine Hcl) 5 Mg Tablet 5 Mg PO DAILY Losartan Potassium 100 Mg Tablet 100 Mg PO DAILY Furosemide 40 Mg Tablet 40 Mg PO DAILY Escitalopram Oxalate 20 Mg Tablet 20 Mg PO DAILY Donepezil Hcl 10 Mg Tablet 10 Mg PO DAILY Atorvastatin Calcium 20 Mg Tablet 20 Mg PO QHS I have reviewed the current psychotropics carefully including drug interactions. Risk benefit ratio favors no change other than as noted in my dictated progress note. Diagnosis: Problems: (1) Anxiety disorder (2) Dementia, vascular, with delusions (3) Dementia, vascular, with depression (4) Impulse control disorder (5) Psychosis, atypical (6) Mild cognitive disorder (7) Major depressive disorder, recurrent episode KENDRA PATTON MD September 03, 2017 23:23
[2017-09-04 06:12] VITALS: BP 130/47
[2017-09-04 10:07] VITALS: BP 120/62
[2017-09-04] MEDS: CHOLECALCIFEROL (VITAMIN D3) 1,000 UNIT TABLET PO SCH (10:20)
[2017-09-04] MEDS: PANTOPRAZOLE 40 MG TABLET. PO SCH (10:20)
[2017-09-04] MEDS: LACTOBACILLUS RHAMNOSUS GG 1 CAPSULE. PO SCH ×2 (10:21→20:42)
[2017-09-04] MEDS: LOSARTAN 50 MG TABLET. PO SCH (10:21)
[2017-09-04] MEDS: risperiDONE 0.25 MG TABLET. PO SCH ×3 (10:21→17:24)
[2017-09-04] MEDS: DULoxetine HCL 30 MG CAPSULE.DR PO SCH (10:22)
[2017-09-04] MEDS: DONEPEZIL HCL 10 MG TABLET PO SCH (10:22)
[2017-09-04] MEDS: CEPHALEXIN 250 MG CAPSULE PO SCH ×2 (10:23→15:03)
[2017-09-04] MEDS: ASCORBIC ACID 500 MG TABLET PO SCH (10:23)
[2017-09-04] MEDS: MULTIVITAMIN with MINERAL TABLET. PO SCH (10:23)
[2017-09-04] MEDS: ASPIRIN 81 MG TAB.CHEW PO SCH (10:23)
[2017-09-04] MEDS: FOLIC ACID 1 MG TABLET PO SCH (10:23)
[2017-09-04] MEDS: FUROSEMIDE 40 MG TABLET PO SCH (10:24)
[2017-09-04] MEDS: MEMANTINE 10 MG TABLET. PO SCH ×2 (10:24→20:43)
[2017-09-04 15:44] VITALS: BP 115/55
[2017-09-04] MEDS: ATORVASTATIN CALCIUM 20 MG TABLET PO SCH (20:42)
--- NOTE | 2017-09-04 20:53 | PDOC ---
Exam Note: Abrahan Note: Please also refer to the separate dictated note~for this date of service dictated separately.~Patient seen individually. Discussed the patient with Nursing staff reviewed the chart.~Reviewed interim history and current functioning. Reviewed vital signs,~Labs/ Radiology~and current medications noted below. Continue current treatment with the changes noted in the dictated addendum note Assessment: Vital Signs: Vital Signs Date Time Temp Pulse Resp B/P (MAP) Pulse Ox O2 Delivery O2 Flow Rate FiO2 09/04/17 15:44 97.3 71 16 115/55 (75) 97 09/01/17 16:55 Room Air I&O Intake and Output 09/04/17 07:00 Intake Total 840 ml Balance 840 ml Intake Oral 840 ml Current Medications: Meds: Current Medications Acetaminophen (Tylenol) 650 mg PRN Q6HRS PRN PO PAIN / TEMP Last administered on 08/28/17at 20:59; Start 08/27/17 at 21:15 Multi-Ingredient Ointment (Analgesic [place]) 1 vidhi PRN QID PRN TP MUSCLE PAIN; Start 08/27/17 at 21:15 Al Hydroxide/Mg Hydroxide (Mylanta Plus Xs) 15 ml PRN AFTMEALHC PRN PO DYSPEPSIA; Start 08/27/17 at 21:15 Magnesium Hydroxide (Milk Of Magnesia) 2,400 mg PRN QHS PRN PO CONSTIPATION; Start 08/27/17 at 21:15 Olanzapine (ZyPREXA ZYDIS) 2.5 mg PRN Q2HR PRN PO ANXIETY / AGITATION Last administered on 08/28/17at 07:51; Start 08/27/17 at 21:15 Donepezil HCl (Aricept) 10 mg DAILY PO Last administered on 09/04/17at 10:22; Start 08/28/17 at 09:00 Citalopram Hydrobromide (CeleXA) 40 mg DAILY PO Last administered on 08/28/17at 07:51; Start 08/28/17 at 09:00; Stop 08/28/17 at 20:09; Status DC Memantine (Namenda) 5 mg DAILY PO Last administered on 08/28/17at 07:51; Start 08/28/17 at 09:00; Stop 08/28/17 at 20:09; Status DC Ascorbic Acid (Vitamin C) 500 mg DAILY PO Last administered on 09/04/17 10:23 ; Start 08/29/17 at 09:00 Atorvastatin Calcium (Lipitor) 20 mg QHS PO Last administered on 09/04/17 20: 42; Start 08/28/17 at 21:00 Vitamin D (Vitamin D3) 2,000 unit DAILY PO Last administered on 09/04/17 10:20 ; Start 08/29/17 at 09:00 Aspirin (Children'S Aspirin) 81 mg DAILYWBKFT PO Last administered on 10:23; Start 08/29/17 at 08:00 Cephalexin HCl (Keflex) 500 mg TID PO Last administered on 09/04/17 15:03; Start 08/28/17 at 14:00; Stop 09/04/17 at 14:01; Status DC Folic Acid (Folic Acid) 1 mg DAILY PO Last administered on 09/04/17 10:23; Start 08/29/17 at 09:00 Furosemide (Lasix) 40 mg DAILY PO Last administered on 09/04/17 10:24; Start 08/29/17 at 09:00 Losartan Potassium (Cozaar) 100 mg DAILY PO Last administered on 09/04/17 10: 21; Start 08/29/17 at 09:00 Multivitamins/ Calcium (Thera-M Plus) 1 tab DAILY PO Last administered on 10:23; Start 08/29/17 at 09:00 Pantoprazole Sodium (Protonix) 40 mg DAILY PO Last administered on 09/04/17 10 :20; Start 08/29/17 at 09:00 Memantine (Namenda) 5 mg BID PO Last administered on 08/31/17at 08:44; Start at 21:00; Stop 08/31/17 at 14:17; Status DC Quetiapine Fumarate (SEROquel) 12.5 mg BID@0900,1300 PO Last administered on 14:06; Start 08/29/17 at 09:00; Stop 09/02/17 at 19:27; Status DC Duloxetine HCl (Cymbalta) 30 mg DAILY PO Last administered on 09/04/17 10:22; Start 08/29/17 at 09:00 Lactobacillus Rhamnosus (Culturelle) 1 cap BID PO Last administered on at 20:42; Start 08/29/17 at 21:00 Memantine (Namenda) 10 mg BID PO Last administered on 09/04/17at 20:43; Start at 21:00 Miconazole Nitrate (Monistat-Derm) 1 vidhi BID TP ; Start 08/31/17 at 21:00; Stop 08/31/17 at 21:00; Status DC Quetiapine Fumarate (SEROquel) 25 mg QHS PO Last administered on 09/01/17at 21: 28; Start 09/01/17 at 21:00; Stop 09/02/17 at 19:27; Status DC Risperidone (RisperDAL) 0.125 mg TID@0900,1300,1700 PO Last administered on at 17:24; Start 09/03/17 at 09:00 Trazodone HCl (Desyrel) 50 mg QHS PO ; Start 09/04/17 at 21:00; Status UNV Active Scripts Active Reported Cephalexin 500 Mg Capsule 500 Mg PO TIDX7 DAYS Multiple Vitamin (Multivitamin With Minerals) 1 Each Tablet 1 Tab PO DAILY Folic Acid 1 Mg Tablet 1 Mg PO DAILY Vitamin D3 (Cholecalciferol (Vitamin D3)) 1,000 Unit Tablet 2,000 Unit PO DAILY Aspirin 81 Mg Tab.chew 81 Mg PO DAILY Vitamin C (Ascorbic Acid) 500 Mg Tablet 500 Mg PO DAILY Pantoprazole Sodium 40 Mg Tablet.dr 40 Mg PO DAILY Namenda (Memantine Hcl) 5 Mg Tablet 5 Mg PO DAILY Losartan Potassium 100 Mg Tablet 100 Mg PO DAILY Furosemide 40 Mg Tablet 40 Mg PO DAILY Escitalopram Oxalate 20 Mg Tablet 20 Mg PO DAILY Donepezil Hcl 10 Mg Tablet 10 Mg PO DAILY Atorvastatin Calcium 20 Mg Tablet 20 Mg PO QHS I have reviewed the current psychotropics carefully including drug interactions. Risk benefit ratio favors no change other than as noted in my dictated progress note. Diagnosis: Problems: (1) Anxiety disorder (2) Dementia, vascular, with delusions (3) Dementia, vascular, with depression (4) Impulse control disorder (5) Psychosis, atypical (6) Mild cognitive disorder (7) Major depressive disorder, recurrent episode KENDRA PATTON MD September 04, 2017 20:53
[2017-09-04] MEDS: traZODone 50 MG TABLET. PO SCH (21:17)
[2017-09-05 06:14] VITALS: BP 119/53
--- NOTE | 2017-09-05 07:42 | PN ---
DATE: 09/02/2017 This late entry 09/02/2017 covers elements not covered in my initial note 09/02/2017. Met with the patient in the evening. The patient is hyperverbal, anxious, somewhat delusional, intermittently hallucinating, aware of her name, date of , that she is in the hospital, a little else. No CV, , pulmonary, eye system symptoms on review. She is hard of hearing, had to talk loudly into her ear. Ambulation impaired with walker. MENTAL STATUS EXAM: Oriented to herself and situation. Speech coherent, abstraction fair, computation impaired, language function intact, attention span short. Mood and affect remain somewhat labile. LABORATORY DATA: Reviewed. IMPRESSION: Unchanged from initial note. PLAN: Change Seroquel to Risperdal 0.125 mg 3 times a day. Maintain rest unchanged. MAN Charli PATTON MD DR: LOBO/rick JOB#: [id number] / [id number]
[2017-09-05] MEDS: FOLIC ACID 1 MG TABLET PO SCH (08:55)
[2017-09-05] MEDS: DONEPEZIL HCL 10 MG TABLET PO SCH (08:55)
[2017-09-05] MEDS: FUROSEMIDE 40 MG TABLET PO SCH (08:55)
[2017-09-05] MEDS: CHOLECALCIFEROL (VITAMIN D3) 1,000 UNIT TABLET PO SCH (08:55)
[2017-09-05] MEDS: LACTOBACILLUS RHAMNOSUS GG 1 CAPSULE. PO SCH ×2 (08:55→20:52)
[2017-09-05] MEDS: risperiDONE 0.25 MG TABLET. PO SCH ×3 (08:55→16:39)
[2017-09-05] MEDS: ASPIRIN 81 MG TAB.CHEW PO SCH (08:55)
[2017-09-05] MEDS: ASCORBIC ACID 500 MG TABLET PO SCH (08:55)
[2017-09-05] MEDS: MEMANTINE 10 MG TABLET. PO SCH ×2 (08:55→20:53)
[2017-09-05] MEDS: PANTOPRAZOLE 40 MG TABLET. PO SCH (08:55)
[2017-09-05] MEDS: MULTIVITAMIN with MINERAL TABLET. PO SCH (08:55)
[2017-09-05] MEDS: LOSARTAN 50 MG TABLET. PO SCH (08:55)
[2017-09-05] MEDS: DULoxetine HCL 30 MG CAPSULE.DR PO SCH (08:55)
--- NOTE | 2017-09-05 13:24 | PN ---
DATE: 09/03/2017 This is a late entry 09/03/2017, covers elements not covered in my initial note 09/03/2017. Met with the patient in the evening, the patient slept 6-1/4 hours. She has been less talking to the bear, less paranoid, but still somewhat delusional with short-term memory deficits, more compliant with her psychotropics. REVIEW OF SYSTEMS: Hard of hearing. No CV, , pulmonary, eye system symptoms on review. MENTAL STATUS EXAM: Oriented to herself and situation. Speech coherent, has some latency, rapid at times. Abstraction fair, computation impaired, language function intact, attention span short. Mood and affect remain somewhat anxious, labile. She is extremely obsessive, following me around the unit regarding discharge plans. LABORATORY DATA: Reviewed. IMPRESSION: Major neurocognitive disorder, Alzheimer, vascular with delusion, depression; anxiety disorder, unspecified; psychotic disorder, unspecified. PLAN: Stop Seroquel 25 mg at bedtime. Continue Namenda, Aricept, Cymbalta, along with Risperdal 0.125 mg t.i.d. Adjust as indicated. MAN Charli PATTON MD DR: LOBO/rick JOB#: [id number] / [id number]
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
[2017-09-05 16:22] VITALS: BP 126/73
[2017-09-05] MEDS: traZODone 50 MG TABLET. PO SCH (20:52)
[2017-09-05] MEDS: ATORVASTATIN CALCIUM 20 MG TABLET PO SCH (20:53)
--- NOTE | 2017-09-05 20:54 | PDOC ---
Exam Note: Abrahan Note: Please also refer to the separate dictated note~for this date of service dictated separately.~Patient seen individually. Discussed the patient with Nursing staff reviewed the chart.~Reviewed interim history and current functioning. Reviewed vital signs,~Labs/ Radiology~and current medications noted below. Continue current treatment with the changes noted in the dictated addendum note Assessment: Vital Signs: Vital Signs Date Time Temp Pulse Resp B/P (MAP) Pulse Ox O2 Delivery O2 Flow Rate FiO2 09/05/17 16:22 97.3 80 22 126/73 (90) 99 09/01/17 16:55 Room Air I&O Intake and Output 09/05/17 07:00 Intake Total 840 ml Balance 840 ml Intake Oral 840 ml Current Medications: Meds: Current Medications Acetaminophen (Tylenol) 650 mg PRN Q6HRS PRN PO PAIN / TEMP Last administered on 08/28/17at 20:59; Start 08/27/17 at 21:15 Multi-Ingredient Ointment (Analgesic [place]) 1 vidhi PRN QID PRN TP MUSCLE PAIN; Start 08/27/17 at 21:15 Al Hydroxide/Mg Hydroxide (Mylanta Plus Xs) 15 ml PRN AFTMEALHC PRN PO DYSPEPSIA; Start 08/27/17 at 21:15 Magnesium Hydroxide (Milk Of Magnesia) 2,400 mg PRN QHS PRN PO CONSTIPATION; Start 08/27/17 at 21:15 Olanzapine (ZyPREXA ZYDIS) 2.5 mg PRN Q2HR PRN PO ANXIETY / AGITATION Last administered on 08/28/17at 07:51; Start 08/27/17 at 21:15 Donepezil HCl (Aricept) 10 mg DAILY PO Last administered on 09/05/17at 08:55; Start 08/28/17 at 09:00 Citalopram Hydrobromide (CeleXA) 40 mg DAILY PO Last administered on 08/28/17at 07:51; Start 08/28/17 at 09:00; Stop 08/28/17 at 20:09; Status DC Memantine (Namenda) 5 mg DAILY PO Last administered on 08/28/17at 07:51; Start 08/28/17 at 09:00; Stop 08/28/17 at 20:09; Status DC Ascorbic Acid (Vitamin C) 500 mg DAILY PO Last administered on 09/05/17 08:55 ; Start 08/29/17 at 09:00 Atorvastatin Calcium (Lipitor) 20 mg QHS PO Last administered on 09/05/17at 20: 53; Start 08/28/17 at 21:00 Vitamin D (Vitamin D3) 2,000 unit DAILY PO Last administered on 09/05/17 08:55 ; Start 08/29/17 at 09:00 Aspirin (Children'S Aspirin) 81 mg DAILYWBKFT PO Last administered on 08:55; Start 08/29/17 at 08:00 Cephalexin HCl (Keflex) 500 mg TID PO Last administered on 09/04/17 15:03; Start 08/28/17 at 14:00; Stop 09/04/17 at 14:01; Status DC Folic Acid (Folic Acid) 1 mg DAILY PO Last administered on 09/05/17 08:55; Start 08/29/17 at 09:00 Furosemide (Lasix) 40 mg DAILY PO Last administered on 09/05/17 08:55; Start 08/29/17 at 09:00 Losartan Potassium (Cozaar) 100 mg DAILY PO Last administered on 09/05/17 08: 55; Start 08/29/17 at 09:00 Multivitamins/ Calcium (Thera-M Plus) 1 tab DAILY PO Last administered on 08:55; Start 08/29/17 at 09:00 Pantoprazole Sodium (Protonix) 40 mg DAILY PO Last administered on 09/05/17at 08 :55; Start 08/29/17 at 09:00 Memantine (Namenda) 5 mg BID PO Last administered on 08/31/17at 08:44; Start at 21:00; Stop 08/31/17 at 14:17; Status DC Quetiapine Fumarate (SEROquel) 12.5 mg BID@0900,1300 PO Last administered on 14:06; Start 08/29/17 at 09:00; Stop 09/02/17 at 19:27; Status DC Duloxetine HCl (Cymbalta) 30 mg DAILY PO Last administered on 09/05/17 08:55; Start 08/29/17 at 09:00 Lactobacillus Rhamnosus (Culturelle) 1 cap BID PO Last administered on 20:52; Start 08/29/17 at 21:00 Memantine (Namenda) 10 mg BID PO Last administered on 09/05/17 20:53; Start at 21:00 Miconazole Nitrate (Monistat-Derm) 1 vidhi BID TP ; Start 08/31/17 at 21:00; Stop 08/31/17 at 21:00; Status DC Quetiapine Fumarate (SEROquel) 25 mg QHS PO Last administered on 09/01/17at 21: 28; Start 09/01/17 at 21:00; Stop 09/02/17 at 19:27; Status DC Risperidone (RisperDAL) 0.125 mg TID@0900,1300,1700 PO Last administered on 16:39; Start 09/03/17 at 09:00 Trazodone HCl (Desyrel) 50 mg QHS PO Last administered on 09/05/17 20:52; Start 09/04/17 at 21:15 Active Scripts Active Reported Cephalexin 500 Mg Capsule 500 Mg PO TIDX7 DAYS Multiple Vitamin (Multivitamin With Minerals) 1 Each Tablet 1 Tab PO DAILY Folic Acid 1 Mg Tablet 1 Mg PO DAILY Vitamin D3 (Cholecalciferol (Vitamin D3)) 1,000 Unit Tablet 2,000 Unit PO DAILY Aspirin 81 Mg Tab.chew 81 Mg PO DAILY Vitamin C (Ascorbic Acid) 500 Mg Tablet 500 Mg PO DAILY Pantoprazole Sodium 40 Mg Tablet.dr 40 Mg PO DAILY Namenda (Memantine Hcl) 5 Mg Tablet 5 Mg PO DAILY Losartan Potassium 100 Mg Tablet 100 Mg PO DAILY Furosemide 40 Mg Tablet 40 Mg PO DAILY Escitalopram Oxalate 20 Mg Tablet 20 Mg PO DAILY Donepezil Hcl 10 Mg Tablet 10 Mg PO DAILY Atorvastatin Calcium 20 Mg Tablet 20 Mg PO QHS I have reviewed the current psychotropics carefully including drug interactions. Risk benefit ratio favors no change other than as noted in my dictated progress note. Diagnosis: Problems: (1) Anxiety disorder (2) Dementia, vascular, with delusions (3) Dementia, vascular, with depression (4) Impulse control disorder (5) Psychosis, atypical (6) Mild cognitive disorder (7) Major depressive disorder, recurrent episode KENDRA PATTON MD September 05, 2017 20:54
--- NOTE | 2017-09-06 03:48 | PN ---
DATE: 09/05/2017 SUBJECTIVE: The patient was seen today, met with the staff, chart reviewed and also covering for Dr. Campo. Staff reports some improvement, still has episodes where she gets very agitated, also delusional and paranoid. OBSERVATION: Vital signs: Temperature 97.3, blood pressure 119/53, pulse 74, respiration 18, O2 sat 94%. Slept about 9 hours last night. Her appetite fair. The patient is oriented to surroundings. Her speech coherent most of the time. Her thinking is not goal directed. MEDICATIONS: Reviewed. Currently on trazodone 50 mg at night, Risperdal 0.125 mg t.i.d., Namenda 10 mg b.i.d., Cymbalta 30 mg daily, Protonix 40 mg daily, Cozaar 100 mg daily, Lasix 40 mg daily, folic acid 1 mg daily. She is also on aspirin, Lipitor. The patient also on Aricept 10 mg daily and olanzapine 2.5 mg q. 2 hours p.r.n. The patient is not having any side effects. The patient's lab reviewed. The patient currently not exhibiting any major physical complaints. ASSESSMENT: 1. Major neurocognitive disorder, most likely Alzheimer with depression and delusions. 2. Major depression, single episode with psychotic features. PLAN: Continue with the treatment. THELMA CAPELLAN MD DR: LIGIA/rick JOB#: [id number] / [id number]
[2017-09-06 07:44] VITALS: BP 137/82
[2017-09-06] MEDS: LACTOBACILLUS RHAMNOSUS GG 1 CAPSULE. PO SCH ×2 (09:51→20:39)
[2017-09-06] MEDS: FUROSEMIDE 40 MG TABLET PO SCH (09:52)
[2017-09-06] MEDS: CHOLECALCIFEROL (VITAMIN D3) 1,000 UNIT TABLET PO SCH (09:52)
[2017-09-06] MEDS: risperiDONE 0.25 MG TABLET. PO SCH ×3 (09:52→16:29)
[2017-09-06] MEDS: MEMANTINE 10 MG TABLET. PO SCH ×2 (09:52→20:40)
[2017-09-06] MEDS: ASPIRIN 81 MG TAB.CHEW PO SCH (09:53)
[2017-09-06] MEDS: DONEPEZIL HCL 10 MG TABLET PO SCH (09:53)
[2017-09-06] MEDS: DULoxetine HCL 30 MG CAPSULE.DR PO SCH (09:53)
[2017-09-06] MEDS: MULTIVITAMIN with MINERAL TABLET. PO SCH (09:53)
[2017-09-06] MEDS: LOSARTAN 50 MG TABLET. PO SCH (09:53)
[2017-09-06] MEDS: FOLIC ACID 1 MG TABLET PO SCH (09:53)
[2017-09-06] MEDS: ASCORBIC ACID 500 MG TABLET PO SCH (09:54)
[2017-09-06] MEDS: PANTOPRAZOLE 40 MG TABLET. PO SCH (09:54)
[2017-09-06 16:54] VITALS: BP 130/60
--- NOTE | 2017-09-06 17:16 | EKG ---
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
[2017-09-06] MEDS: ATORVASTATIN CALCIUM 20 MG TABLET PO SCH (20:39)
[2017-09-06] MEDS: traZODone 50 MG TABLET. PO SCH (20:40)
[2017-09-06] MEDS: risperiDONE 0.5 MG TABLET. PO SCH (20:41)
[2017-09-07] MEDS: ASPIRIN 81 MG TAB.CHEW PO SCH ×2 (08:00→08:32)
[2017-09-07] MEDS: CHOLECALCIFEROL (VITAMIN D3) 1,000 UNIT TABLET PO SCH ×2 (08:30→09:00)
[2017-09-07] MEDS: DULoxetine HCL 30 MG CAPSULE.DR PO SCH ×2 (08:31→09:00)
[2017-09-07] MEDS: LACTOBACILLUS RHAMNOSUS GG 1 CAPSULE. PO SCH ×4 (08:31→19:59)
[2017-09-07] MEDS: ASCORBIC ACID 500 MG TABLET PO SCH ×2 (08:31→09:00)
[2017-09-07] MEDS: FOLIC ACID 1 MG TABLET PO SCH ×2 (08:31→09:00)
[2017-09-07] MEDS: FUROSEMIDE 40 MG TABLET PO SCH ×2 (08:31→09:00)
[2017-09-07] MEDS: PANTOPRAZOLE 40 MG TABLET. PO SCH ×2 (08:32→09:00)
[2017-09-07] MEDS: MULTIVITAMIN with MINERAL TABLET. PO SCH ×2 (08:32→09:00)
[2017-09-07] MEDS: MEMANTINE 10 MG TABLET. PO SCH ×4 (08:32→19:59)
[2017-09-07] MEDS: LOSARTAN 50 MG TABLET. PO SCH ×2 (08:32→09:00)
[2017-09-07] MEDS: DONEPEZIL HCL 10 MG TABLET PO SCH ×2 (08:32→09:00)
[2017-09-07 12:40] VITALS: BP 130/60
[2017-09-07 16:47] VITALS: BP 130/74
[2017-09-07] MEDS: risperiDONE 0.5 MG TABLET. PO SCH ×2 (19:40→19:59)
[2017-09-07] MEDS: ATORVASTATIN CALCIUM 20 MG TABLET PO SCH ×2 (19:40→19:59)
[2017-09-07] MEDS: traZODone 50 MG TABLET. PO SCH ×3 (19:40→22:37)
--- NOTE | 2017-09-07 20:15 | PDOC ---
Exam Note: Abrahan Note: Late entry for date of service September 06, 2017. Please also refer to the separate dictated note~for this date of service dictated separately.~Patient seen individually. Discussed the patient with Nursing staff reviewed the chart.~ Reviewed interim history and current functioning. Reviewed vital signs,~Labs/ Radiology~and current medications noted below. Continue current treatment with the changes noted in the dictated addendum note Assessment: Vital Signs: VS - Last 72 Hours, by Label Date Time Temp Pulse Resp B/P (MAP) Pulse Ox O2 Delivery O2 Flow Rate FiO2 09/07/17 16:47 97.6 74 18 130/74 (92) 97 09/07/17 12:40 97.1 69 130/60 (83) 94 09/06/17 16:54 97.1 69 18 130/60 (83) 94 Room Air 09/06/17 09:53 101 137/82 09/06/17 07:44 101 137/82 (100) 09/05/17 16:22 97.3 80 22 126/73 (90) 99 09/05/17 08:55 74 119/53 09/05/17 06:14 97.3 74 18 119/53 (75) 94 Vital Signs Date Time Temp Pulse Resp B/P (MAP) Pulse Ox O2 Delivery O2 Flow Rate FiO2 09/07/17 16:47 97.6 74 18 130/74 (92) 97 09/06/17 16:54 Room Air I&O Intake and Output 09/07/17 07:00 Intake Total 720 ml Balance 720 ml Intake Oral 720 ml # Bowel Movements 1 Current Medications: Meds: Current Medications Acetaminophen (Tylenol) 650 mg PRN Q6HRS PRN PO PAIN / TEMP Last administered on 08/28/17at 20:59; Start 08/27/17 at 21:15 Multi-Ingredient Ointment (Analgesic [place]) 1 vidhi PRN QID PRN TP MUSCLE PAIN; Start 08/27/17 at 21:15 Al Hydroxide/Mg Hydroxide (Mylanta Plus Xs) 15 ml PRN AFTMEALHC PRN PO DYSPEPSIA; Start 08/27/17 at 21:15 Magnesium Hydroxide (Milk Of Magnesia) 2,400 mg PRN QHS PRN PO CONSTIPATION Last administered on 09/05/17at 20:56; Start 08/27/17 at 21:15 Olanzapine (ZyPREXA ZYDIS) 2.5 mg PRN Q2HR PRN PO ANXIETY / AGITATION Last administered on 08/28/17 07:51; Start 08/27/17 at 21:15; Stop 09/06/17 at 18:50 ; Status DC Donepezil HCl (Aricept) 10 mg DAILY PO Last administered on 09/06/17 09:53; Start 08/28/17 at 09:00 Citalopram Hydrobromide (CeleXA) 40 mg DAILY PO Last administered on 08/28/17 07:51; Start 08/28/17 at 09:00; Stop 08/28/17 at 20:09; Status DC Memantine (Namenda) 5 mg DAILY PO Last administered on 08/28/17 07:51; Start 08/28/17 at 09:00; Stop 08/28/17 at 20:09; Status DC Ascorbic Acid (Vitamin C) 500 mg DAILY PO Last administered on 09/06/17 09:54 ; Start 08/29/17 at 09:00 Atorvastatin Calcium (Lipitor) 20 mg QHS PO Last administered on 09/06/17at 20: 39; Start 08/28/17 at 21:00 Vitamin D (Vitamin D3) 2,000 unit DAILY PO Last administered on 09/06/17 09:52 ; Start 08/29/17 at 09:00 Aspirin (Children'S Aspirin) 81 mg DAILYWBKFT PO Last administered on 09:53; Start 08/29/17 at 08:00 Cephalexin HCl (Keflex) 500 mg TID PO Last administered on 09/04/17at 15:03; Start 08/28/17 at 14:00; Stop 09/04/17 at 14:01; Status DC Folic Acid (Folic Acid) 1 mg DAILY PO Last administered on 09/06/17 09:53; Start 08/29/17 at 09:00 Furosemide (Lasix) 40 mg DAILY PO Last administered on 09/06/17 09:52; Start 08/29/17 at 09:00 Losartan Potassium (Cozaar) 100 mg DAILY PO Last administered on 09/06/17 09: 53; Start 08/29/17 at 09:00 Multivitamins/ Calcium (Thera-M Plus) 1 tab DAILY PO Last administered on at 09:53; Start 08/29/17 at 09:00 Pantoprazole Sodium (Protonix) 40 mg DAILY PO Last administered on 09/06/17at 09 :54; Start 08/29/17 at 09:00 Memantine (Namenda) 5 mg BID PO Last administered on 08/31/17at 08:44; Start at 21:00; Stop 08/31/17 at 14:17; Status DC Quetiapine Fumarate (SEROquel) 12.5 mg BID@0900,1300 PO Last administered on at 14:06; Start 08/29/17 at 09:00; Stop 09/02/17 at 19:27; Status DC Duloxetine HCl (Cymbalta) 30 mg DAILY PO Last administered on 09/06/17at 09:53; Start 08/29/17 at 09:00 Lactobacillus Rhamnosus (Culturelle) 1 cap BID PO Last administered on at 20:39; Start 08/29/17 at 21:00 Memantine (Namenda) 10 mg BID PO Last administered on 09/06/17at 20:40; Start at 21:00 Miconazole Nitrate (Monistat-Derm) 1 vidhi BID TP ; Start 08/31/17 at 21:00; Stop 08/31/17 at 21:00; Status DC Quetiapine Fumarate (SEROquel) 25 mg QHS PO Last administered on 09/01/17at 21: 28; Start 09/01/17 at 21:00; Stop 09/02/17 at 19:27; Status DC Risperidone (RisperDAL) 0.125 mg TID@0900,1300,1700 PO Last administered on at 16:29; Start 09/03/17 at 09:00; Stop 09/06/17 at 18:55; Status DC Trazodone HCl (Desyrel) 50 mg QHS PO Last administered on 09/06/17at 20:40; Start 09/04/17 at 21:15 Risperidone (RisperDAL) 0.5 mg QHS PO Last administered on 09/06/17at 20:41; Start 09/06/17 at 21:00 Olanzapine (ZyPREXA ZYDIS) 2.5 mg PRN Q2HR PRN PO psychosis/agitation; Start at 19:00 Active Scripts Active Reported Cephalexin 500 Mg Capsule 500 Mg PO TIDX7 DAYS Multiple Vitamin (Multivitamin With Minerals) 1 Each Tablet 1 Tab PO DAILY Folic Acid 1 Mg Tablet 1 Mg PO DAILY Vitamin D3 (Cholecalciferol (Vitamin D3)) 1,000 Unit Tablet 2,000 Unit PO DAILY Aspirin 81 Mg Tab.chew 81 Mg PO DAILY Vitamin C (Ascorbic Acid) 500 Mg Tablet 500 Mg PO DAILY Pantoprazole Sodium 40 Mg Tablet.dr 40 Mg PO DAILY Namenda (Memantine Hcl) 5 Mg Tablet 5 Mg PO DAILY Losartan Potassium 100 Mg Tablet 100 Mg PO DAILY Furosemide 40 Mg Tablet 40 Mg PO DAILY Escitalopram Oxalate 20 Mg Tablet 20 Mg PO DAILY Donepezil Hcl 10 Mg Tablet 10 Mg PO DAILY Atorvastatin Calcium 20 Mg Tablet 20 Mg PO QHS I have reviewed the current psychotropics carefully including drug interactions. Risk benefit ratio favors no change other than as noted in my dictated progress note. Diagnosis: Problems: (1) Anxiety disorder (2) Dementia, vascular, with delusions (3) Dementia, vascular, with depression (4) Impulse control disorder (5) Psychosis, atypical (6) Mild cognitive disorder (7) Major depressive disorder, recurrent episode KENDRA PATTON MD September 07, 2017 20:15
--- NOTE | 2017-09-07 20:39 | PDOC ---
Exam Note: Abrahan Note: Please also refer to the separate dictated note~for this date of service dictated separately.~Patient seen individually. Discussed the patient with Nursing staff reviewed the chart.~Reviewed interim history and current functioning. Reviewed vital signs,~Labs/ Radiology~and current medications noted below. Continue current treatment with the changes noted in the dictated addendum note Assessment: Vital Signs: Vital Signs Date Time Temp Pulse Resp B/P (MAP) Pulse Ox O2 Delivery O2 Flow Rate FiO2 09/07/17 16:47 97.6 74 18 130/74 (92) 97 09/06/17 16:54 Room Air I&O Intake and Output 09/07/17 07:00 Intake Total 720 ml Balance 720 ml Intake Oral 720 ml # Bowel Movements 1 Current Medications: Meds: Current Medications Acetaminophen (Tylenol) 650 mg PRN Q6HRS PRN PO PAIN / TEMP Last administered on 08/28/17at 20:59; Start 08/27/17 at 21:15 Multi-Ingredient Ointment (Analgesic [place]) 1 vidhi PRN QID PRN TP MUSCLE PAIN; Start 08/27/17 at 21:15 Al Hydroxide/Mg Hydroxide (Mylanta Plus Xs) 15 ml PRN AFTMEALHC PRN PO DYSPEPSIA; Start 08/27/17 at 21:15 Magnesium Hydroxide (Milk Of Magnesia) 2,400 mg PRN QHS PRN PO CONSTIPATION Last administered on 09/05/17at 20:56; Start 08/27/17 at 21:15 Olanzapine (ZyPREXA ZYDIS) 2.5 mg PRN Q2HR PRN PO ANXIETY / AGITATION Last administered on 08/28/17at 07:51; Start 08/27/17 at 21:15; Stop 09/06/17 at 18:50 ; Status DC Donepezil HCl (Aricept) 10 mg DAILY PO Last administered on 09/06/17at 09:53; Start 08/28/17 at 09:00 Citalopram Hydrobromide (CeleXA) 40 mg DAILY PO Last administered on 08/28/17at 07:51; Start 08/28/17 at 09:00; Stop 08/28/17 at 20:09; Status DC Memantine (Namenda) 5 mg DAILY PO Last administered on 08/28/17at 07:51; Start 08/28/17 at 09:00; Stop 08/28/17 at 20:09; Status DC Ascorbic Acid (Vitamin C) 500 mg DAILY PO Last administered on 09/06/17 09:54 ; Start 08/29/17 at 09:00 Atorvastatin Calcium (Lipitor) 20 mg QHS PO Last administered on 09/06/17 20: 39; Start 08/28/17 at 21:00 Vitamin D (Vitamin D3) 2,000 unit DAILY PO Last administered on 09/06/17 09:52 ; Start 08/29/17 at 09:00 Aspirin (Children'S Aspirin) 81 mg DAILYWBKFT PO Last administered on 09:53; Start 08/29/17 at 08:00 Cephalexin HCl (Keflex) 500 mg TID PO Last administered on 09/04/17 15:03; Start 08/28/17 at 14:00; Stop 09/04/17 at 14:01; Status DC Folic Acid (Folic Acid) 1 mg DAILY PO Last administered on 09/06/17 09:53; Start 08/29/17 at 09:00 Furosemide (Lasix) 40 mg DAILY PO Last administered on 09/06/17 09:52; Start 08/29/17 at 09:00 Losartan Potassium (Cozaar) 100 mg DAILY PO Last administered on 09/06/17 09: 53; Start 08/29/17 at 09:00 Multivitamins/ Calcium (Thera-M Plus) 1 tab DAILY PO Last administered on 09:53; Start 08/29/17 at 09:00 Pantoprazole Sodium (Protonix) 40 mg DAILY PO Last administered on 09/06/17 09 :54; Start 08/29/17 at 09:00 Memantine (Namenda) 5 mg BID PO Last administered on 08/31/17at 08:44; Start at 21:00; Stop 08/31/17 at 14:17; Status DC Quetiapine Fumarate (SEROquel) 12.5 mg BID@0900,1300 PO Last administered on at 14:06; Start 08/29/17 at 09:00; Stop 09/02/17 at 19:27; Status DC Duloxetine HCl (Cymbalta) 30 mg DAILY PO Last administered on 09/06/17at 09:53; Start 08/29/17 at 09:00 Lactobacillus Rhamnosus (Culturelle) 1 cap BID PO Last administered on at 20:39; Start 08/29/17 at 21:00 Memantine (Namenda) 10 mg BID PO Last administered on 09/06/17at 20:40; Start at 21:00 Miconazole Nitrate (Monistat-Derm) 1 vidhi BID TP ; Start 08/31/17 at 21:00; Stop 08/31/17 at 21:00; Status DC Quetiapine Fumarate (SEROquel) 25 mg QHS PO Last administered on 09/01/17at 21: 28; Start 09/01/17 at 21:00; Stop 09/02/17 at 19:27; Status DC Risperidone (RisperDAL) 0.125 mg TID@0900,1300,1700 PO Last administered on at 16:29; Start 09/03/17 at 09:00; Stop 09/06/17 at 18:55; Status DC Trazodone HCl (Desyrel) 50 mg QHS PO Last administered on 09/06/17at 20:40; Start 09/04/17 at 21:15 Risperidone (RisperDAL) 0.5 mg QHS PO Last administered on 09/06/17at 20:41; Start 09/06/17 at 21:00 Olanzapine (ZyPREXA ZYDIS) 2.5 mg PRN Q2HR PRN PO psychosis/agitation; Start at 19:00 Active Scripts Active Reported Cephalexin 500 Mg Capsule 500 Mg PO TIDX7 DAYS Multiple Vitamin (Multivitamin With Minerals) 1 Each Tablet 1 Tab PO DAILY Folic Acid 1 Mg Tablet 1 Mg PO DAILY Vitamin D3 (Cholecalciferol (Vitamin D3)) 1,000 Unit Tablet 2,000 Unit PO DAILY Aspirin 81 Mg Tab.chew 81 Mg PO DAILY Vitamin C (Ascorbic Acid) 500 Mg Tablet 500 Mg PO DAILY Pantoprazole Sodium 40 Mg Tablet.dr 40 Mg PO DAILY Namenda (Memantine Hcl) 5 Mg Tablet 5 Mg PO DAILY Losartan Potassium 100 Mg Tablet 100 Mg PO DAILY Furosemide 40 Mg Tablet 40 Mg PO DAILY Escitalopram Oxalate 20 Mg Tablet 20 Mg PO DAILY Donepezil Hcl 10 Mg Tablet 10 Mg PO DAILY Atorvastatin Calcium 20 Mg Tablet 20 Mg PO QHS I have reviewed the current psychotropics carefully including drug interactions. Risk benefit ratio favors no change other than as noted in my dictated progress note. Diagnosis: Problems: (1) Anxiety disorder (2) Dementia, vascular, with delusions (3) Dementia, vascular, with depression (4) Impulse control disorder (5) Psychosis, atypical (6) Mild cognitive disorder (7) Major depressive disorder, recurrent episode KENDRA PATTON MD September 07, 2017 20:39
[2017-09-07] MEDS ORDERED: MEMA10TA PO (22:33)
[2017-09-07] MEDS ORDERED: ACET325T9 PO (22:36)
[2017-09-07] MEDS ORDERED: DULO30CA2 PO (22:38)
[2017-09-07] MEDS ORDERED: L. R1CAP2 PO (22:40)
[2017-09-07] MEDS ORDERED: MAG30ORA2 PO (22:41)
[2017-09-07] MEDS ORDERED: MAGN2400 PO (22:42)
[2017-09-07] MEDS ORDERED: METH29OI TP (22:43)
[2017-09-07] MEDS ORDERED: OLAN5TAB9 PO (22:44)
[2017-09-07] MEDS ORDERED: RISP0.5T24 SL (22:46)
[2017-09-07] MEDS ORDERED: TRAZ50TA15 PO (22:47)
[2017-09-08 05:58] VITALS: BP 126/53
--- NOTE | 2017-09-08 07:14 | PN ---
DATE: 09/06/2017 PSYCHIATRIC PROGRESS NOTE This late entry 09/06/2017 covers elements not covered in my initial note 09/06/2017. SUBJECTIVE: I met with the patient in the evening. The patient slept 6-1/4 hours, took her medications the previous evening, though she often refuses. She has been praying "weird stuff out loud," per nursing report. During the day, 09/06/2017, she is compliant with her medications. [facility] staff came to reevaluate and the patient was quite irritable with them. She resents frequency of psychotropics and we will change the Risperdal 0.125 mg t.i.d. to 0.5 mg at bedtime. REVIEW OF SYSTEMS: Hard of hearing. No CV, , pulmonary, eye system symptoms on review. MENTAL STATUS EXAM: Oriented to herself and situation. Speech coherent, can be pressured at times. Abstraction fair, computation impaired, language function intact, attention span short. Mood and affect somewhat anxious, labile. LABORATORIES: Reviewed. IMPRESSION: Psychotic disorder, unspecified; major neurocognitive disorder, early Alzheimer, vascular with delusion, depression. Rest unchanged. PLAN: Change the Risperdal as above. Continue rest unchanged including Aricept, Namenda, Cymbalta, and the Zyprexa p.r.n. KENDRA PATTON MD DR: LOBO/rick JOB#: [id number] / [id number]
[2017-09-08] MEDS: MULTIVITAMIN with MINERAL TABLET. PO SCH ×2 (09:00→09:59)
[2017-09-08] MEDS: FUROSEMIDE 40 MG TABLET PO SCH (09:57)
[2017-09-08] MEDS: LACTOBACILLUS RHAMNOSUS GG 1 CAPSULE. PO SCH ×2 (09:58→20:13)
[2017-09-08] MEDS: DULoxetine HCL 30 MG CAPSULE.DR PO SCH (09:58)
[2017-09-08] MEDS: FOLIC ACID 1 MG TABLET PO SCH (09:58)
[2017-09-08] MEDS: PANTOPRAZOLE 40 MG TABLET. PO SCH (09:58)
[2017-09-08] MEDS: DONEPEZIL HCL 10 MG TABLET PO SCH (09:58)
[2017-09-08] MEDS: CHOLECALCIFEROL (VITAMIN D3) 1,000 UNIT TABLET PO SCH (09:58)
[2017-09-08] MEDS: ASCORBIC ACID 500 MG TABLET PO SCH (09:59)
[2017-09-08] MEDS: ASPIRIN 81 MG TAB.CHEW PO SCH (09:59)
[2017-09-08] MEDS: MEMANTINE 10 MG TABLET. PO SCH ×3 (09:59→20:12)
[2017-09-08] MEDS: LOSARTAN 50 MG TABLET. PO SCH (11:34)
[2017-09-08 16:13] VITALS: BP 111/58
[2017-09-08] MEDS: ATORVASTATIN CALCIUM 20 MG TABLET PO SCH (20:13)
[2017-09-08] MEDS: risperiDONE 0.5 MG TABLET. PO SCH (20:13)
[2017-09-08] MEDS ORDERED: traZODone 50 MG TABLET. PO ONE (20:15)
--- NOTE | 2017-09-08 20:56 | PDOC ---
Exam Note: Abrahan Note: Please also refer to the separate dictated note~for this date of service dictated separately.~Patient seen individually. Discussed the patient with Nursing staff reviewed the chart.~Reviewed interim history and current functioning. Reviewed vital signs,~Labs/ Radiology~and current medications noted below. Continue current treatment with the changes noted in the dictated addendum note Assessment: Vital Signs: Vital Signs Date Time Temp Pulse Resp B/P (MAP) Pulse Ox O2 Delivery O2 Flow Rate FiO2 09/08/17 16:13 97.8 87 20 111/58 (75) 94 09/06/17 16:54 Room Air I&O Intake and Output 09/08/17 07:00 Intake Total 360 ml Balance 360 ml Intake Oral 360 ml Current Medications: Meds: Current Medications Acetaminophen (Tylenol) 650 mg PRN Q6HRS PRN PO PAIN / TEMP Last administered on 08/28/17at 20:59; Start 08/27/17 at 21:15 Multi-Ingredient Ointment (Analgesic [place]) 1 angie PRN QID PRN TP MUSCLE PAIN; Start 08/27/17 at 21:15 Al Hydroxide/Mg Hydroxide (Mylanta Plus Xs) 15 ml PRN AFTMEALHC PRN PO DYSPEPSIA; Start 08/27/17 at 21:15 Magnesium Hydroxide (Milk Of Magnesia) 2,400 mg PRN QHS PRN PO CONSTIPATION Last administered on 09/05/17at 20:56; Start 08/27/17 at 21:15 Olanzapine (ZyPREXA ZYDIS) 2.5 mg PRN Q2HR PRN PO ANXIETY / AGITATION Last administered on 08/28/17at 07:51; Start 08/27/17 at 21:15; Stop 09/06/17 at 18:50 ; Status DC Donepezil HCl (Aricept) 10 mg DAILY PO Last administered on 09/08/17at 09:58; Start 08/28/17 at 09:00 Citalopram Hydrobromide (CeleXA) 40 mg DAILY PO Last administered on 08/28/17at 07:51; Start 08/28/17 at 09:00; Stop 08/28/17 at 20:09; Status DC Memantine (Namenda) 5 mg DAILY PO Last administered on 08/28/17at 07:51; Start 08/28/17 at 09:00; Stop 08/28/17 at 20:09; Status DC Ascorbic Acid (Vitamin C) 500 mg DAILY PO Last administered on 09/08/17 09:59 ; Start 08/29/17 at 09:00 Atorvastatin Calcium (Lipitor) 20 mg QHS PO Last administered on 09/08/17 20: 13; Start 08/28/17 at 21:00 Vitamin D (Vitamin D3) 2,000 unit DAILY PO Last administered on 09/08/17 09:58 ; Start 08/29/17 at 09:00 Aspirin (Children'S Aspirin) 81 mg DAILYWBKFT PO Last administered on 09:59; Start 08/29/17 at 08:00 Cephalexin HCl (Keflex) 500 mg TID PO Last administered on 09/04/17 15:03; Start 08/28/17 at 14:00; Stop 09/04/17 at 14:01; Status DC Folic Acid (Folic Acid) 1 mg DAILY PO Last administered on 09/08/17 09:58; Start 08/29/17 at 09:00 Furosemide (Lasix) 40 mg DAILY PO Last administered on 09/08/17 09:57; Start 08/29/17 at 09:00 Losartan Potassium (Cozaar) 100 mg DAILY PO Last administered on 09/08/17at 11: 34; Start 08/29/17 at 09:00 Multivitamins/ Calcium (Thera-M Plus) 1 tab DAILY PO Last administered on at 09:53; Start 08/29/17 at 09:00 Pantoprazole Sodium (Protonix) 40 mg DAILY PO Last administered on 09/08/17 09 :58; Start 08/29/17 at 09:00 Memantine (Namenda) 5 mg BID PO Last administered on 08/31/17at 08:44; Start at 21:00; Stop 08/31/17 at 14:17; Status DC Quetiapine Fumarate (SEROquel) 12.5 mg BID@0900,1300 PO Last administered on at 14:06; Start 08/29/17 at 09:00; Stop 09/02/17 at 19:27; Status DC Duloxetine HCl (Cymbalta) 30 mg DAILY PO Last administered on 09/08/17at 09:58; Start 08/29/17 at 09:00; Stop 09/08/17 at 12:18; Status DC Lactobacillus Rhamnosus (Culturelle) 1 cap BID PO Last administered on at 20:13; Start 08/29/17 at 21:00 Memantine (Namenda) 10 mg BID PO Last administered on 09/08/17at 20:12; Start at 21:00 Miconazole Nitrate (Monistat-Derm) 1 angie BID TP ; Start 08/31/17 at 21:00; Stop 08/31/17 at 21:00; Status DC Quetiapine Fumarate (SEROquel) 25 mg QHS PO Last administered on 09/01/17at 21: 28; Start 09/01/17 at 21:00; Stop 09/02/17 at 19:27; Status DC Risperidone (RisperDAL) 0.125 mg TID@0900,1300,1700 PO Last administered on at 16:29; Start 09/03/17 at 09:00; Stop 09/06/17 at 18:55; Status DC Trazodone HCl (Desyrel) 50 mg QHS PO Last administered on 09/07/17at 22:37; Start 09/04/17 at 21:15 Risperidone (RisperDAL) 0.5 mg QHS PO Last administered on 09/08/17at 20:13; Start 09/06/17 at 21:00 Olanzapine (ZyPREXA ZYDIS) 2.5 mg PRN Q2HR PRN PO psychosis/agitation Last administered on 09/07/17at 22:37; Start 09/06/17 at 19:00 Duloxetine HCl (Cymbalta) 60 mg DAILY PO ; Start 09/09/17 at 09:00 Quetiapine Fumarate (SEROquel) 25 mg QHS PO Last administered on 09/08/17at 20: 14; Start 09/08/17 at 21:00 Trazodone HCl (Desyrel) 50 mg 1X ONCE PO Last administered on 09/08/17at 20:12 ; Start 09/08/17 at 20:15; Stop 09/08/17 at 20:17; Status DC Active Scripts Active Reported Trazodone Hcl 50 Mg Tablet 50 Mg PO QHS Risperdal (Risperidone) 0.5 Mg Tablet 0.5 Mg PO QHS Olanzapine 5 Mg Tablet 2.5 Mg PO PRN Q2HR PRN Analgesic [place] (Methyl Salicylate/Menthol) 28 Gm Oint...g. 1 Angie TP PRN QID PRN Milk Of Magnesia (Magnesium Hydroxide) 2,400 Mg/10 Ml Oral.susp 2,400 Mg PO PRN QHS PRN Mag-Al Plus Xs Suspension (Mag Hydrox/Al Hydrox/Simeth) 30 Ml Oral.susp 15 Ml PO PRN AFTMEALHC PRN Culturelle Capsule (L. Rhamnosus GG/Inulin) 1 Each Cap.sprink 1 Each PO BID Cymbalta (Duloxetine Hcl) 30 Mg Capsule.dr 30 Mg PO DAILY Tylenol (Acetaminophen) 325 Mg Tablet 650 Mg PO PRN Q6HRS PRN Namenda (Memantine Hcl) 10 Mg Tablet 10 Mg PO BID Cephalexin 500 Mg Capsule 500 Mg PO TIDX7 DAYS Multiple Vitamin (Multivitamin With Minerals) 1 Each Tablet 1 Tab PO DAILY Folic Acid 1 Mg Tablet 1 Mg PO DAILY Vitamin D3 (Cholecalciferol (Vitamin D3)) 1,000 Unit Tablet 2,000 Unit PO DAILY Aspirin 81 Mg Tab.chew 81 Mg PO DAILY Vitamin C (Ascorbic Acid) 500 Mg Tablet 500 Mg PO DAILY Pantoprazole Sodium 40 Mg Tablet.dr 40 Mg PO DAILY Namenda (Memantine Hcl) 5 Mg Tablet 5 Mg PO DAILY Losartan Potassium 100 Mg Tablet 100 Mg PO DAILY Furosemide 40 Mg Tablet 40 Mg PO DAILY Escitalopram Oxalate 20 Mg Tablet 20 Mg PO DAILY Donepezil Hcl 10 Mg Tablet 10 Mg PO DAILY Atorvastatin Calcium 20 Mg Tablet 20 Mg PO QHS I have reviewed the current psychotropics carefully including drug interactions. Risk benefit ratio favors no change other than as noted in my dictated progress note. Diagnosis: Problems: (1) Anxiety disorder (2) Dementia, vascular, with delusions (3) Dementia, vascular, with depression (4) Impulse control disorder (5) Psychosis, atypical (6) Mild cognitive disorder (7) Major depressive disorder, recurrent episode KENDRA PATTON MD September 08, 2017 20:56
[2017-09-08] MEDS ORDERED: QUEtiapine 25 MG TABLET. PO SCH (21:00)
[2017-09-09 06:00] VITALS: BP 135/82
[2017-09-09] MEDS: DONEPEZIL HCL 10 MG TABLET PO SCH ×2 (08:05→09:00)
[2017-09-09] MEDS: ASCORBIC ACID 500 MG TABLET PO SCH ×2 (08:06→09:00)
[2017-09-09] MEDS: LACTOBACILLUS RHAMNOSUS GG 1 CAPSULE. PO SCH ×3 (08:06→19:52)
[2017-09-09] MEDS: PANTOPRAZOLE 40 MG TABLET. PO SCH ×2 (08:06→09:00)
[2017-09-09] MEDS: LOSARTAN 50 MG TABLET. PO SCH ×2 (08:06→09:00)
[2017-09-09] MEDS: FUROSEMIDE 40 MG TABLET PO SCH ×2 (08:06→09:00)
[2017-09-09] MEDS: FOLIC ACID 1 MG TABLET PO SCH ×2 (08:06→09:00)
[2017-09-09] MEDS: MULTIVITAMIN with MINERAL TABLET. PO SCH ×2 (08:06→09:00)
[2017-09-09] MEDS: MEMANTINE 10 MG TABLET. PO SCH ×2 (08:06→19:52)
[2017-09-09] MEDS: CHOLECALCIFEROL (VITAMIN D3) 1,000 UNIT TABLET PO SCH ×2 (08:06→09:00)
[2017-09-09] MEDS: ASPIRIN 81 MG TAB.CHEW PO SCH (08:06)
[2017-09-09] MEDS: DULoxetine HCL 60 MG CAPSULE.DR PO SCH (08:08)
[2017-09-09 10:18] LABS: BASO # 0.1 x10^3/uL (0.0-0.2); BASO % 1 % (0-3); EOS # 0.6 x10^3/uL (0.0-0.7); EOS % 13 % (0-3); HEMATOCRIT 31.1 % (36.0-47.0); HEMOGLOBIN 10.8 g/dL (12.0-15.5); LYMPH # 1.2 x10^3/uL (1.0-4.8); LYMPH % 27 % (24-48); MEAN CORPUSCULAR HEMOGLOBIN 32 pg (25-35); MEAN CORPUSCULAR HGB CONC 35 g/dL (31-37); MEAN CORPUSCULAR VOLUME 91 fL (79-100); MONO # 0.6 x10^3/uL (0.0-1.1); MONO % 14 % (0-9); NEUT # 1.9 x10^3uL (1.8-7.7); NEUT % 44 % (31-73); PLATELET COUNT 279 x10^3/uL (140-400); RED BLOOD COUNT 3.43 x10^6/uL (3.50-5.40); RED CELL DISTRIBUTION WIDTH 15.3 % (11.5-14.5); WHITE BLOOD COUNT 4.4 x10^3/uL (4.0-11.0)
[2017-09-09 10:29] LABS: ALBUMIN 2.8 g/dL (3.4-5.0); ALBUMIN/GLOBULIN RATIO 0.8 (1.0-1.7); CALCIUM 8.9 mg/dL (8.5-10.1); CREATININE 1.2 mg/dL (0.6-1.0); GFR 42.3; POTASSIUM 3.8 mmol/L (3.5-5.1); TOTAL BILIRUBIN 0.8 mg/dL (0.2-1.0); TOTAL PROTEIN 6.3 g/dL (6.4-8.2)
[2017-09-09 16:29] VITALS: BP 93/56
[2017-09-09] MEDS: ATORVASTATIN CALCIUM 20 MG TABLET PO SCH (19:53)
[2017-09-09] MEDS: traZODone 50 MG TABLET. PO SCH (19:54)
--- NOTE | 2017-09-09 19:59 | PDOC ---
Exam Note: Abrahan Note: Please also refer to the separate dictated note~for this date of service dictated separately.~Patient seen individually. Discussed the patient with Nursing staff reviewed the chart.~Reviewed interim history and current functioning. Reviewed vital signs,~Labs/ Radiology~and current medications noted below. Continue current treatment with the changes noted in the dictated addendum note Assessment: Vital Signs: Vital Signs Date Time Temp Pulse Resp B/P (MAP) Pulse Ox O2 Delivery O2 Flow Rate FiO2 09/09/17 16:29 98.4 69 16 93/56 (68) 94 Room Air I&O Intake and Output 09/09/17 07:00 Intake Total 360 ml Balance 360 ml Intake Oral 360 ml # Bowel Movements 1 Labs: Laboratory Tests Test 09/09/17 10:05 09/09/17 10:08 White Blood Count 4.4 x10^3/uL (4.0-11.0) Red Blood Count 3.43 x10^6/uL (3.50-5.40) L Hemoglobin 10.8 g/dL (12.0-15.5) L Hematocrit 31.1 % (36.0-47.0) L Mean Corpuscular Volume 91 fL (79-100) Mean Corpuscular Hemoglobin 32 pg (25-35) Mean Corpuscular Hemoglobin Concent 35 g/dL (31-37) Red Cell Distribution Width 15.3 % (11.5-14.5) H Platelet Count 279 x10^3/uL (140-400) Neutrophils (%) (Auto) 44 % (31-73) Lymphocytes (%) (Auto) 27 % (24-48) Monocytes (%) (Auto) 14 % (0-9) H Eosinophils (%) (Auto) 13 % (0-3) H Basophils (%) (Auto) 1 % (0-3) Neutrophils # (Auto) 1.9 x10^3uL (1.8-7.7) Lymphocytes # (Auto) 1.2 x10^3/uL (1.0-4.8) Monocytes # (Auto) 0.6 x10^3/uL (0.0-1.1) Eosinophils # (Auto) 0.6 x10^3/uL (0.0-0.7) Basophils # (Auto) 0.1 x10^3/uL (0.0-0.2) Sodium Level 142 mmol/L (136-145) Potassium Level 3.8 mmol/L (3.5-5.1) Chloride Level 104 mmol/L (98-107) Carbon Dioxide Level 31 mmol/L (21-32) Anion Gap 7 (6-14) Blood Urea Nitrogen 27 mg/dL (7-20) H Creatinine 1.2 mg/dL (0.6-1.0) H Estimated GFR (Cockcroft-Gault) 42.3 BUN/Creatinine Ratio 23 (6-20) H Glucose Level 87 mg/dL (70-99) Calcium Level 8.9 mg/dL (8.5-10.1) Total Bilirubin 0.8 mg/dL (0.2-1.0) Aspartate Amino Transferase (AST) 19 U/L (15-37) Alanine Aminotransferase (ALT) 17 U/L (14-59) Alkaline Phosphatase 180 U/L (46-116) H Total Protein 6.3 g/dL (6.4-8.2) L Albumin 2.8 g/dL (3.4-5.0) L Albumin/Globulin Ratio 0.8 (1.0-1.7) L Current Medications: Meds: Current Medications Acetaminophen (Tylenol) 650 mg PRN Q6HRS PRN PO PAIN / TEMP Last administered on 08/28/17at 20:59; Start 08/27/17 at 21:15 Multi-Ingredient Ointment (Analgesic [place]) 1 angie PRN QID PRN TP MUSCLE PAIN; Start 08/27/17 at 21:15 Al Hydroxide/Mg Hydroxide (Mylanta Plus Xs) 15 ml PRN AFTMEALHC PRN PO DYSPEPSIA; Start 08/27/17 at 21:15 Magnesium Hydroxide (Milk Of Magnesia) 2,400 mg PRN QHS PRN PO CONSTIPATION Last administered on 09/05/17at 20:56; Start 08/27/17 at 21:15 Olanzapine (ZyPREXA ZYDIS) 2.5 mg PRN Q2HR PRN PO ANXIETY / AGITATION Last administered on 08/28/17at 07:51; Start 08/27/17 at 21:15; Stop 09/06/17 at 18:50 ; Status DC Donepezil HCl (Aricept) 10 mg DAILY PO Last administered on 09/08/17 09:58; Start 08/28/17 at 09:00 Citalopram Hydrobromide (CeleXA) 40 mg DAILY PO Last administered on 08/28/17 07:51; Start 08/28/17 at 09:00; Stop 08/28/17 at 20:09; Status DC Memantine (Namenda) 5 mg DAILY PO Last administered on 08/28/17 07:51; Start 08/28/17 at 09:00; Stop 08/28/17 at 20:09; Status DC Ascorbic Acid (Vitamin C) 500 mg DAILY PO Last administered on 09/08/17 09:59 ; Start 08/29/17 at 09:00 Atorvastatin Calcium (Lipitor) 20 mg QHS PO Last administered on 09/09/17 19: 53; Start 08/28/17 at 21:00 Vitamin D (Vitamin D3) 2,000 unit DAILY PO Last administered on 09/08/17 09:58 ; Start 08/29/17 at 09:00 Aspirin (Children'S Aspirin) 81 mg DAILYWBKFT PO Last administered on 08:06; Start 08/29/17 at 08:00 Cephalexin HCl (Keflex) 500 mg TID PO Last administered on 09/04/17 15:03; Start 08/28/17 at 14:00; Stop 09/04/17 at 14:01; Status DC Folic Acid (Folic Acid) 1 mg DAILY PO Last administered on 09/08/17 09:58; Start 08/29/17 at 09:00 Furosemide (Lasix) 40 mg DAILY PO Last administered on 09/08/17 09:57; Start 08/29/17 at 09:00; Stop 09/09/17 at 17:43; Status DC Losartan Potassium (Cozaar) 100 mg DAILY PO Last administered on 09/08/17 11: 34; Start 08/29/17 at 09:00 Multivitamins/ Calcium (Thera-M Plus) 1 tab DAILY PO Last administered on 09:53; Start 08/29/17 at 09:00 Pantoprazole Sodium (Protonix) 40 mg DAILY PO Last administered on 09/08/17 09 :58; Start 08/29/17 at 09:00 Memantine (Namenda) 5 mg BID PO Last administered on 08/31/17at 08:44; Start at 21:00; Stop 08/31/17 at 14:17; Status DC Quetiapine Fumarate (SEROquel) 12.5 mg BID@0900,1300 PO Last administered on at 14:06; Start 08/29/17 at 09:00; Stop 09/02/17 at 19:27; Status DC Duloxetine HCl (Cymbalta) 30 mg DAILY PO Last administered on 09/08/17at 09:58; Start 08/29/17 at 09:00; Stop 09/08/17 at 12:18; Status DC Lactobacillus Rhamnosus (Culturelle) 1 cap BID PO Last administered on at 19:52; Start 08/29/17 at 21:00 Memantine (Namenda) 10 mg BID PO Last administered on 09/09/17at 19:52; Start at 21:00 Miconazole Nitrate (Monistat-Derm) 1 angie BID TP ; Start 08/31/17 at 21:00; Stop 08/31/17 at 21:00; Status DC Quetiapine Fumarate (SEROquel) 25 mg QHS PO Last administered on 09/01/17at 21: 28; Start 09/01/17 at 21:00; Stop 09/02/17 at 19:27; Status DC Risperidone (RisperDAL) 0.125 mg TID@0900,1300,1700 PO Last administered on at 16:29; Start 09/03/17 at 09:00; Stop 09/06/17 at 18:55; Status DC Trazodone HCl (Desyrel) 50 mg QHS PO Last administered on 09/09/17at 19:54; Start 09/04/17 at 21:15 Risperidone (RisperDAL) 0.5 mg QHS PO Last administered on 09/08/17at 20:13; Start 09/06/17 at 21:00; Stop 09/09/17 at 19:35; Status DC Olanzapine (ZyPREXA ZYDIS) 2.5 mg PRN Q2HR PRN PO psychosis/agitation Last administered on 09/09/17at 13:26; Start 09/06/17 at 19:00 Duloxetine HCl (Cymbalta) 60 mg DAILY PO Last administered on 09/09/17at 08:08; Start 09/09/17 at 09:00 Quetiapine Fumarate (SEROquel) 25 mg QHS PO Last administered on 09/08/17at 20: 14; Start 09/08/17 at 21:00; Stop 09/09/17 at 19:35; Status DC Trazodone HCl (Desyrel) 50 mg 1X ONCE PO Last administered on 09/08/17at 20:12 ; Start 09/08/17 at 20:15; Stop 09/08/17 at 20:17; Status DC Risperidone (RisperDAL) 1 mg HS SL ; Start 09/09/17 at 21:00 Active Scripts Active Reported Trazodone Hcl 50 Mg Tablet 50 Mg PO QHS Risperdal (Risperidone) 0.5 Mg Tablet 0.5 Mg PO QHS Olanzapine 5 Mg Tablet 2.5 Mg PO PRN Q2HR PRN Analgesic [place] (Methyl Salicylate/Menthol) 28 Gm Oint...g. 1 Angie TP PRN QID PRN Milk Of Magnesia (Magnesium Hydroxide) 2,400 Mg/10 Ml Oral.susp 2,400 Mg PO PRN QHS PRN Mag-Al Plus Xs Suspension (Mag Hydrox/Al Hydrox/Simeth) 30 Ml Oral.susp 15 Ml PO PRN AFTMEALHC PRN Culturelle Capsule (L. Rhamnosus GG/Inulin) 1 Each Cap.sprink 1 Each PO BID Cymbalta (Duloxetine Hcl) 30 Mg Capsule.dr 30 Mg PO DAILY Tylenol (Acetaminophen) 325 Mg Tablet 650 Mg PO PRN Q6HRS PRN Namenda (Memantine Hcl) 10 Mg Tablet 10 Mg PO BID Cephalexin 500 Mg Capsule 500 Mg PO TIDX7 DAYS Multiple Vitamin (Multivitamin With Minerals) 1 Each Tablet 1 Tab PO DAILY Folic Acid 1 Mg Tablet 1 Mg PO DAILY Vitamin D3 (Cholecalciferol (Vitamin D3)) 1,000 Unit Tablet 2,000 Unit PO DAILY Aspirin 81 Mg Tab.chew 81 Mg PO DAILY Vitamin C (Ascorbic Acid) 500 Mg Tablet 500 Mg PO DAILY Pantoprazole Sodium 40 Mg Tablet.dr 40 Mg PO DAILY Namenda (Memantine Hcl) 5 Mg Tablet 5 Mg PO DAILY Losartan Potassium 100 Mg Tablet 100 Mg PO DAILY Furosemide 40 Mg Tablet 40 Mg PO DAILY Escitalopram Oxalate 20 Mg Tablet 20 Mg PO DAILY Donepezil Hcl 10 Mg Tablet 10 Mg PO DAILY Atorvastatin Calcium 20 Mg Tablet 20 Mg PO QHS I have reviewed the current psychotropics carefully including drug interactions. Risk benefit ratio favors no change other than as noted in my dictated progress note. Diagnosis: Problems: (1) Anxiety disorder (2) Dementia, vascular, with delusions (3) Dementia, vascular, with depression (4) Impulse control disorder (5) Psychosis, atypical (6) Mild cognitive disorder (7) Major depressive disorder, recurrent episode KENDRA PATTON MD September 09, 2017 19:59
[2017-09-09] MEDS: risperiDONE ORAL 1 MG/ML 30ml BOTTLE. SL SCH (21:00)
--- NOTE | 2017-09-09 22:13 | PN ---
DATE: 09/08/2017 PSYCHIATRIC PROGRESS NOTE This is a late entry 09/08/2017 covers elements not covered in my initial note 09/08/2017. SUBJECTIVE: The patient was staffed at treatment team meetings, sleeping 5-1/2 hours. Appetite is 50%, refused medications the day before. REVIEW OF SYSTEMS: Ambulation impaired. No CV, , pulmonary, eye, ENT system symptoms on review. MENTAL STATUS EXAM: Oriented to herself and situation. Speech is coherent, abstraction fair, computation impaired, language function intact. Mood and affect still withdrawn. She ate no breakfast or lunch. IMPRESSION: Unchanged from initial note. PLAN: Continue psychotropics mentioned in my initial note. She refused most of her medications the day before and Cymbalta has been increased from 30 mg a day to 60 mg a day. MAN Charli PATTON MD DR: LOBO/rick JOB#: [id number] / [id number]
--- NOTE | 2017-09-09 22:56 | PN ---
DATE: 09/07/2017 This late entry 09/07/2017 covers elements not covered in my initial note 09/07/2017. SUBJECTIVE: I met with the patient in the evening. The patient slept 9 hours, refusing a.m. medications. Did not seem to recognize me as I met her in her room in the evening. Trying to cheek her medications. REVIEW OF SYSTEMS: No CV, , pulmonary, eye, ENT system symptoms on review. Reliability poor. MENTAL STATUS EXAM: Oriented to herself. Insight, judgment, recent and remote memory, attention, concentration, fund of knowledge poor, consistent with her diagnosis mentioned in my initial note. PLAN: The patient is being noncompliant with psychotropics. I have encouraged her to restart these. No suicidal or homicidal ideation at discharge. MAN Charli PATTON MD DR: LOBO/rick JOB#: [id number] / [id number]
[2017-09-10 06:33] VITALS: BP 122/64
[2017-09-10] MEDS: MULTIVITAMIN with MINERAL TABLET. PO SCH (07:39)
[2017-09-10] MEDS: ASPIRIN 81 MG TAB.CHEW PO SCH (07:39)
[2017-09-10] MEDS: LOSARTAN 50 MG TABLET. PO SCH (07:39)
[2017-09-10] MEDS: FOLIC ACID 1 MG TABLET PO SCH (07:39)
[2017-09-10] MEDS: DULoxetine HCL 60 MG CAPSULE.DR PO SCH (07:40)
[2017-09-10] MEDS: ASCORBIC ACID 500 MG TABLET PO SCH (07:40)
[2017-09-10] MEDS: DONEPEZIL HCL 10 MG TABLET PO SCH (07:40)
[2017-09-10] MEDS: PANTOPRAZOLE 40 MG TABLET. PO SCH (07:40)
[2017-09-10] MEDS: CHOLECALCIFEROL (VITAMIN D3) 1,000 UNIT TABLET PO SCH (07:40)
[2017-09-10] MEDS: LACTOBACILLUS RHAMNOSUS GG 1 CAPSULE. PO SCH ×2 (07:40→20:44)
[2017-09-10] MEDS: MEMANTINE 10 MG TABLET. PO SCH ×2 (07:40→20:44)
[2017-09-10] MEDS: risperiDONE ORAL 1 MG/ML 30ml BOTTLE. SL SCH (11:00)
[2017-09-10 16:24] VITALS: BP 110/42
[2017-09-10] MEDS: ATORVASTATIN CALCIUM 20 MG TABLET PO SCH (20:44)
[2017-09-10] MEDS: traZODone 50 MG TABLET. PO SCH (20:44)
--- NOTE | 2017-09-10 23:29 | PDOC ---
Exam Note: Abrahan Note: Please also refer to the separate dictated note~for this date of service dictated separately.~Patient seen individually. Discussed the patient with Nursing staff reviewed the chart.~Reviewed interim history and current functioning. Reviewed vital signs,~Labs/ Radiology~and current medications noted below. Continue current treatment with the changes noted in the dictated addendum note Assessment: Vital Signs: Vital Signs Date Time Temp Pulse Resp B/P (MAP) Pulse Ox O2 Delivery O2 Flow Rate FiO2 09/10/17 16:24 97.8 79 20 110/42 (64) 94 09/09/17 16:29 Room Air I&O Intake and Output 09/10/17 07:00 Intake Total 480 ml Balance 480 ml Intake Oral 480 ml Current Medications: Meds: Current Medications Acetaminophen (Tylenol) 650 mg PRN Q6HRS PRN PO PAIN / TEMP Last administered on 08/28/17at 20:59; Start 08/27/17 at 21:15 Multi-Ingredient Ointment (Analgesic [place]) 1 angie PRN QID PRN TP MUSCLE PAIN; Start 08/27/17 at 21:15 Al Hydroxide/Mg Hydroxide (Mylanta Plus Xs) 15 ml PRN AFTMEALHC PRN PO DYSPEPSIA; Start 08/27/17 at 21:15 Magnesium Hydroxide (Milk Of Magnesia) 2,400 mg PRN QHS PRN PO CONSTIPATION Last administered on 09/05/17at 20:56; Start 08/27/17 at 21:15 Olanzapine (ZyPREXA ZYDIS) 2.5 mg PRN Q2HR PRN PO ANXIETY / AGITATION Last administered on 08/28/17at 07:51; Start 08/27/17 at 21:15; Stop 09/06/17 at 18:50 ; Status DC Donepezil HCl (Aricept) 10 mg DAILY PO Last administered on 09/10/17at 07:40; Start 08/28/17 at 09:00 Citalopram Hydrobromide (CeleXA) 40 mg DAILY PO Last administered on 08/28/17at 07:51; Start 08/28/17 at 09:00; Stop 08/28/17 at 20:09; Status DC Memantine (Namenda) 5 mg DAILY PO Last administered on 08/28/17at 07:51; Start 08/28/17 at 09:00; Stop 08/28/17 at 20:09; Status DC Ascorbic Acid (Vitamin C) 500 mg DAILY PO Last administered on 09/10/17 07:40 ; Start 08/29/17 at 09:00 Atorvastatin Calcium (Lipitor) 20 mg QHS PO Last administered on 09/10/17at 20: 44; Start 08/28/17 at 21:00 Vitamin D (Vitamin D3) 2,000 unit DAILY PO Last administered on 09/10/17at 07:40 ; Start 08/29/17 at 09:00 Aspirin (Children'S Aspirin) 81 mg DAILYWBKFT PO Last administered on 07:39; Start 08/29/17 at 08:00 Cephalexin HCl (Keflex) 500 mg TID PO Last administered on 09/04/17at 15:03; Start 08/28/17 at 14:00; Stop 09/04/17 at 14:01; Status DC Folic Acid (Folic Acid) 1 mg DAILY PO Last administered on 09/10/17at 07:39; Start 08/29/17 at 09:00 Furosemide (Lasix) 40 mg DAILY PO Last administered on 09/08/17at 09:57; Start 08/29/17 at 09:00; Stop 09/09/17 at 17:43; Status DC Losartan Potassium (Cozaar) 100 mg DAILY PO Last administered on 09/10/17at 07: 39; Start 08/29/17 at 09:00 Multivitamins/ Calcium (Thera-M Plus) 1 tab DAILY PO Last administered on at 07:39; Start 08/29/17 at 09:00 Pantoprazole Sodium (Protonix) 40 mg DAILY PO Last administered on 09/10/17at 07 :40; Start 08/29/17 at 09:00 Memantine (Namenda) 5 mg BID PO Last administered on 08/31/17at 08:44; Start at 21:00; Stop 08/31/17 at 14:17; Status DC Quetiapine Fumarate (SEROquel) 12.5 mg BID@0900,1300 PO Last administered on at 14:06; Start 08/29/17 at 09:00; Stop 09/02/17 at 19:27; Status DC Duloxetine HCl (Cymbalta) 30 mg DAILY PO Last administered on 09/08/17at 09:58; Start 08/29/17 at 09:00; Stop 09/08/17 at 12:18; Status DC Lactobacillus Rhamnosus (Culturelle) 1 cap BID PO Last administered on at 20:44; Start 08/29/17 at 21:00 Memantine (Namenda) 10 mg BID PO Last administered on 09/10/17at 20:44; Start at 21:00 Miconazole Nitrate (Monistat-Derm) 1 angie BID TP ; Start 08/31/17 at 21:00; Stop 08/31/17 at 21:00; Status DC Quetiapine Fumarate (SEROquel) 25 mg QHS PO Last administered on 09/01/17at 21: 28; Start 09/01/17 at 21:00; Stop 09/02/17 at 19:27; Status DC Risperidone (RisperDAL) 0.125 mg TID@0900,1300,1700 PO Last administered on at 16:29; Start 09/03/17 at 09:00; Stop 09/06/17 at 18:55; Status DC Trazodone HCl (Desyrel) 50 mg QHS PO Last administered on 09/10/17at 20:44; Start 09/04/17 at 21:15 Risperidone (RisperDAL) 0.5 mg QHS PO Last administered on 09/08/17at 20:13; Start 09/06/17 at 21:00; Stop 09/09/17 at 19:35; Status DC Olanzapine (ZyPREXA ZYDIS) 2.5 mg PRN Q2HR PRN PO psychosis/agitation Last administered on 09/09/17at 13:26; Start 09/06/17 at 19:00 Duloxetine HCl (Cymbalta) 60 mg DAILY PO Last administered on 09/10/17at 07:40; Start 09/09/17 at 09:00 Quetiapine Fumarate (SEROquel) 25 mg QHS PO Last administered on 09/08/17at 20: 14; Start 09/08/17 at 21:00; Stop 09/09/17 at 19:35; Status DC Trazodone HCl (Desyrel) 50 mg 1X ONCE PO Last administered on 09/08/17at 20:12 ; Start 09/08/17 at 20:15; Stop 09/08/17 at 20:17; Status DC Risperidone (RisperDAL) 1 mg HS SL Last administered on 09/10/17at 11:00; Start 09/09/17 at 21:00 Active Scripts Active Reported Trazodone Hcl 50 Mg Tablet 50 Mg PO QHS Risperdal (Risperidone) 0.5 Mg Tablet 0.5 Mg PO QHS Olanzapine 5 Mg Tablet 2.5 Mg PO PRN Q2HR PRN Analgesic [place] (Methyl Salicylate/Menthol) 28 Gm Oint...g. 1 Angie TP PRN QID PRN Milk Of Magnesia (Magnesium Hydroxide) 2,400 Mg/10 Ml Oral.susp 2,400 Mg PO PRN QHS PRN Mag-Al Plus Xs Suspension (Mag Hydrox/Al Hydrox/Simeth) 30 Ml Oral.susp 15 Ml PO PRN AFTMEALHC PRN Culturelle Capsule (L. Rhamnosus GG/Inulin) 1 Each Cap.sprink 1 Each PO BID Cymbalta (Duloxetine Hcl) 30 Mg Capsule.dr 30 Mg PO DAILY Tylenol (Acetaminophen) 325 Mg Tablet 650 Mg PO PRN Q6HRS PRN Namenda (Memantine Hcl) 10 Mg Tablet 10 Mg PO BID Cephalexin 500 Mg Capsule 500 Mg PO TIDX7 DAYS Multiple Vitamin (Multivitamin With Minerals) 1 Each Tablet 1 Tab PO DAILY Folic Acid 1 Mg Tablet 1 Mg PO DAILY Vitamin D3 (Cholecalciferol (Vitamin D3)) 1,000 Unit Tablet 2,000 Unit PO DAILY Aspirin 81 Mg Tab.chew 81 Mg PO DAILY Vitamin C (Ascorbic Acid) 500 Mg Tablet 500 Mg PO DAILY Pantoprazole Sodium 40 Mg Tablet.dr 40 Mg PO DAILY Namenda (Memantine Hcl) 5 Mg Tablet 5 Mg PO DAILY Losartan Potassium 100 Mg Tablet 100 Mg PO DAILY Furosemide 40 Mg Tablet 40 Mg PO DAILY Escitalopram Oxalate 20 Mg Tablet 20 Mg PO DAILY Donepezil Hcl 10 Mg Tablet 10 Mg PO DAILY Atorvastatin Calcium 20 Mg Tablet 20 Mg PO QHS I have reviewed the current psychotropics carefully including drug interactions. Risk benefit ratio favors no change other than as noted in my dictated progress note. Diagnosis: Problems: (1) Anxiety disorder (2) Dementia, vascular, with delusions (3) Dementia, vascular, with depression (4) Impulse control disorder (5) Psychosis, atypical (6) Mild cognitive disorder (7) Major depressive disorder, recurrent episode KENDRA PATTON MD September 10, 2017 23:29
[2017-09-11 06:27] VITALS: BP 102/68
[2017-09-11] MEDS: LACTOBACILLUS RHAMNOSUS GG 1 CAPSULE. PO SCH ×2 (07:33→19:36)
[2017-09-11] MEDS: DONEPEZIL HCL 10 MG TABLET PO SCH (07:33)
[2017-09-11] MEDS: MEMANTINE 10 MG TABLET. PO SCH ×2 (07:33→19:37)
[2017-09-11] MEDS: CHOLECALCIFEROL (VITAMIN D3) 1,000 UNIT TABLET PO SCH (07:34)
[2017-09-11] MEDS: PANTOPRAZOLE 40 MG TABLET. PO SCH (07:37)
[2017-09-11] MEDS: ASPIRIN 81 MG TAB.CHEW PO SCH (07:37)
[2017-09-11] MEDS: MULTIVITAMIN with MINERAL TABLET. PO SCH (07:37)
[2017-09-11] MEDS: DULoxetine HCL 60 MG CAPSULE.DR PO SCH (07:37)
[2017-09-11] MEDS: FOLIC ACID 1 MG TABLET PO SCH (07:37)
[2017-09-11] MEDS: ASCORBIC ACID 500 MG TABLET PO SCH (07:37)
[2017-09-11] MEDS: LOSARTAN 50 MG TABLET. PO SCH (07:37)
[2017-09-11] MEDS: risperiDONE ORAL 1 MG/ML 30ml BOTTLE. SL SCH (07:37)
[2017-09-11 16:55] VITALS: BP 130/63
[2017-09-11 17:36] LABS: BILIRUBIN,URINE NEG (NEG); CLARITY,URINE CLEAR; COLOR,URINE YELLOW; GLUCOSE,URINE NEG (NEG); NITRITE,URINE NEG (NEG); RBC,URINE OCC /HPF (0-2); UROBILINOGEN,URINE 1 mg/dL (0.2 mg/dL)
[2017-09-11 17:37] LABS: BACTERIA,URINE 0 /HPF (0-FEW); SQUAMOUS EPITHELIAL CELL,UR OCC /LPF
[2017-09-11] MEDS: ATORVASTATIN CALCIUM 20 MG TABLET PO SCH (19:36)
[2017-09-11] MEDS: traZODone 50 MG TABLET. PO SCH (19:37)
--- NOTE | 2017-09-11 21:05 | PDOC ---
Exam Note: Abrahan Note: Please also refer to the separate dictated note~for this date of service dictated separately.~Patient seen individually. Discussed the patient with Nursing staff reviewed the chart.~Reviewed interim history and current functioning. Reviewed vital signs,~Labs/ Radiology~and current medications noted below. Continue current treatment with the changes noted in the dictated addendum note Assessment: Vital Signs: Vital Signs Date Time Temp Pulse Resp B/P (MAP) Pulse Ox O2 Delivery O2 Flow Rate FiO2 09/11/17 16:55 97.3 87 16 130/63 (85) 98 09/09/17 16:29 Room Air I&O Intake and Output 09/11/17 07:00 Intake Total 480 ml Balance 480 ml Intake Oral 480 ml Labs: Laboratory Tests Test 09/11/17 16:20 Urine Collection Type Unknown Urine Color Yellow Urine Clarity Clear Urine pH 5.0 Urine Specific [place] 1.020 Urine Protein Neg (NEG-TRACE) Urine Glucose (UA) Neg mg/dL (NEG) Urine Ketones (Stick) Neg mg/dL (NEG) Urine Blood Neg (NEG) Urine Nitrite Neg (NEG) Urine Bilirubin Neg (NEG) Urine Urobilinogen Dipstick 1 mg/dL (0.2 mg/dL) Urine Leukocyte Esterase Small (NEG) Urine RBC Occ /HPF (0-2) Urine WBC 1-4 /HPF (0-4) Urine Squamous Epithelial Cells Occ /LPF Urine Bacteria 0 /HPF (0-FEW) Urine Mucus Slight /LPF Current Medications: Meds: Current Medications Acetaminophen (Tylenol) 650 mg PRN Q6HRS PRN PO PAIN / TEMP Last administered on 08/28/17at 20:59; Start 08/27/17 at 21:15 Multi-Ingredient Ointment (Analgesic [place]) 1 angie PRN QID PRN TP MUSCLE PAIN; Start 08/27/17 at 21:15 Al Hydroxide/Mg Hydroxide (Mylanta Plus Xs) 15 ml PRN AFTMEALHC PRN PO DYSPEPSIA; Start 08/27/17 at 21:15 Magnesium Hydroxide (Milk Of Magnesia) 2,400 mg PRN QHS PRN PO CONSTIPATION Last administered on 09/05/17at 20:56; Start 08/27/17 at 21:15 Olanzapine (ZyPREXA ZYDIS) 2.5 mg PRN Q2HR PRN PO ANXIETY / AGITATION Last administered on 08/28/17 07:51; Start 08/27/17 at 21:15; Stop 09/06/17 at 18:50 ; Status DC Donepezil HCl (Aricept) 10 mg DAILY PO Last administered on 09/11/17 07:33; Start 08/28/17 at 09:00 Citalopram Hydrobromide (CeleXA) 40 mg DAILY PO Last administered on 08/28/17 07:51; Start 08/28/17 at 09:00; Stop 08/28/17 at 20:09; Status DC Memantine (Namenda) 5 mg DAILY PO Last administered on 08/28/17 07:51; Start 08/28/17 at 09:00; Stop 08/28/17 at 20:09; Status DC Ascorbic Acid (Vitamin C) 500 mg DAILY PO Last administered on 09/11/17 07:37 ; Start 08/29/17 at 09:00 Atorvastatin Calcium (Lipitor) 20 mg QHS PO Last administered on 09/11/17at 19: 36; Start 08/28/17 at 21:00 Vitamin D (Vitamin D3) 2,000 unit DAILY PO Last administered on 09/11/17 07:34 ; Start 08/29/17 at 09:00 Aspirin (Children'S Aspirin) 81 mg DAILYWBKFT PO Last administered on 07:37; Start 08/29/17 at 08:00 Cephalexin HCl (Keflex) 500 mg TID PO Last administered on 09/04/17 15:03; Start 08/28/17 at 14:00; Stop 09/04/17 at 14:01; Status DC Folic Acid (Folic Acid) 1 mg DAILY PO Last administered on 09/11/17 07:37; Start 08/29/17 at 09:00 Furosemide (Lasix) 40 mg DAILY PO Last administered on 09/08/17 09:57; Start 08/29/17 at 09:00; Stop 09/09/17 at 17:43; Status DC Losartan Potassium (Cozaar) 100 mg DAILY PO Last administered on 09/10/17 07: 39; Start 08/29/17 at 09:00 Multivitamins/ Calcium (Thera-M Plus) 1 tab DAILY PO Last administered on 07:37; Start 08/29/17 at 09:00 Pantoprazole Sodium (Protonix) 40 mg DAILY PO Last administered on 09/11/17at 07 :37; Start 08/29/17 at 09:00 Memantine (Namenda) 5 mg BID PO Last administered on 08/31/17at 08:44; Start at 21:00; Stop 08/31/17 at 14:17; Status DC Quetiapine Fumarate (SEROquel) 12.5 mg BID@0900,1300 PO Last administered on at 14:06; Start 08/29/17 at 09:00; Stop 09/02/17 at 19:27; Status DC Duloxetine HCl (Cymbalta) 30 mg DAILY PO Last administered on 09/08/17at 09:58; Start 08/29/17 at 09:00; Stop 09/08/17 at 12:18; Status DC Lactobacillus Rhamnosus (Culturelle) 1 cap BID PO Last administered on at 19:36; Start 08/29/17 at 21:00 Memantine (Namenda) 10 mg BID PO Last administered on 09/11/17 19:37; Start at 21:00 Miconazole Nitrate (Monistat-Derm) 1 angie BID TP ; Start 08/31/17 at 21:00; Stop 08/31/17 at 21:00; Status DC Quetiapine Fumarate (SEROquel) 25 mg QHS PO Last administered on 09/01/17at 21: 28; Start 09/01/17 at 21:00; Stop 09/02/17 at 19:27; Status DC Risperidone (RisperDAL) 0.125 mg TID@0900,1300,1700 PO Last administered on at 16:29; Start 09/03/17 at 09:00; Stop 09/06/17 at 18:55; Status DC Trazodone HCl (Desyrel) 50 mg QHS PO Last administered on 09/11/17at 19:37; Start 09/04/17 at 21:15 Risperidone (RisperDAL) 0.5 mg QHS PO Last administered on 09/08/17at 20:13; Start 5/22/18 at 21:00; Stop 09/09/17 at 19:35; Status DC Olanzapine (ZyPREXA ZYDIS) 2.5 mg PRN Q2HR PRN PO psychosis/agitation Last administered on 09/11/17at 19:55; Start 09/06/17 at 19:00 Duloxetine HCl (Cymbalta) 60 mg DAILY PO Last administered on 09/11/17at 07:37; Start 09/09/17 at 09:00 Quetiapine Fumarate (SEROquel) 25 mg QHS PO Last administered on 09/08/17at 20: 14; Start 09/08/17 at 21:00; Stop 09/09/17 at 19:35; Status DC Trazodone HCl (Desyrel) 50 mg 1X ONCE PO Last administered on 09/08/17at 20:12 ; Start 09/08/17 at 20:15; Stop 09/08/17 at 20:17; Status DC Risperidone (RisperDAL) 1 mg HS SL Last administered on 09/11/17at 07:37; Start 09/09/17 at 21:00 Active Scripts Active Reported Trazodone Hcl 50 Mg Tablet 50 Mg PO QHS Risperdal (Risperidone) 0.5 Mg Tablet 0.5 Mg PO QHS Olanzapine 5 Mg Tablet 2.5 Mg PO PRN Q2HR PRN Analgesic [place] (Methyl Salicylate/Menthol) 28 Gm Oint...g. 1 Angie TP PRN QID PRN Milk Of Magnesia (Magnesium Hydroxide) 2,400 Mg/10 Ml Oral.susp 2,400 Mg PO PRN QHS PRN Mag-Al Plus Xs Suspension (Mag Hydrox/Al Hydrox/Simeth) 30 Ml Oral.susp 15 Ml PO PRN AFTMEALHC PRN Culturelle Capsule (L. Rhamnosus GG/Inulin) 1 Each Cap.sprink 1 Each PO BID Cymbalta (Duloxetine Hcl) 30 Mg Capsule.dr 30 Mg PO DAILY Tylenol (Acetaminophen) 325 Mg Tablet 650 Mg PO PRN Q6HRS PRN Namenda (Memantine Hcl) 10 Mg Tablet 10 Mg PO BID Cephalexin 500 Mg Capsule 500 Mg PO TIDX7 DAYS Multiple Vitamin (Multivitamin With Minerals) 1 Each Tablet 1 Tab PO DAILY Folic Acid 1 Mg Tablet 1 Mg PO DAILY Vitamin D3 (Cholecalciferol (Vitamin D3)) 1,000 Unit Tablet 2,000 Unit PO DAILY Aspirin 81 Mg Tab.chew 81 Mg PO DAILY Vitamin C (Ascorbic Acid) 500 Mg Tablet 500 Mg PO DAILY Pantoprazole Sodium 40 Mg Tablet.dr 40 Mg PO DAILY Namenda (Memantine Hcl) 5 Mg Tablet 5 Mg PO DAILY Losartan Potassium 100 Mg Tablet 100 Mg PO DAILY Furosemide 40 Mg Tablet 40 Mg PO DAILY Escitalopram Oxalate 20 Mg Tablet 20 Mg PO DAILY Donepezil Hcl 10 Mg Tablet 10 Mg PO DAILY Atorvastatin Calcium 20 Mg Tablet 20 Mg PO QHS I have reviewed the current psychotropics carefully including drug interactions. Risk benefit ratio favors no change other than as noted in my dictated progress note. Diagnosis: Problems: (1) Anxiety disorder (2) Dementia, vascular, with delusions (3) Dementia, vascular, with depression (4) Impulse control disorder (5) Psychosis, atypical (6) Mild cognitive disorder (7) Major depressive disorder, recurrent episode KENDRA PATTON MD September 11, 2017 21:05
[2017-09-12 06:26] VITALS: BP 119/53
[2017-09-12] MEDS: DONEPEZIL HCL 10 MG TABLET PO SCH (08:23)
[2017-09-12] MEDS: LOSARTAN 50 MG TABLET. PO SCH (08:24)
[2017-09-12] MEDS: MULTIVITAMIN with MINERAL TABLET. PO SCH (08:24)
[2017-09-12] MEDS: ASPIRIN 81 MG TAB.CHEW PO SCH (08:24)
[2017-09-12] MEDS: DULoxetine HCL 60 MG CAPSULE.DR PO SCH (08:24)
[2017-09-12] MEDS: LACTOBACILLUS RHAMNOSUS GG 1 CAPSULE. PO SCH ×2 (08:24→21:09)
[2017-09-12] MEDS: FOLIC ACID 1 MG TABLET PO SCH (08:24)
[2017-09-12] MEDS: MEMANTINE 10 MG TABLET. PO SCH ×2 (08:24→21:09)
[2017-09-12] MEDS: ASCORBIC ACID 500 MG TABLET PO SCH (08:24)
[2017-09-12] MEDS: PANTOPRAZOLE 40 MG TABLET. PO SCH (08:24)
[2017-09-12] MEDS: CHOLECALCIFEROL (VITAMIN D3) 1,000 UNIT TABLET PO SCH (08:24)
[2017-09-12 16:09] VITALS: BP 155/72
--- NOTE | 2017-09-12 20:49 | PDOC ---
Exam Note: Abrahan Note: Please also refer to the separate dictated note~for this date of service dictated separately.~Patient seen individually. Discussed the patient with Nursing staff reviewed the chart.~Reviewed interim history and current functioning. Reviewed vital signs,~Labs/ Radiology~and current medications noted below. Continue current treatment with the changes noted in the dictated addendum note Assessment: Vital Signs: Vital Signs Date Time Temp Pulse Resp B/P (MAP) Pulse Ox O2 Delivery O2 Flow Rate FiO2 09/12/17 16:09 97.7 77 16 155/72 (99) 99 09/09/17 16:29 Room Air I&O Intake and Output 09/12/17 07:00 Intake Total 920 ml Balance 920 ml Intake Oral 920 ml # Voids 1 Current Medications: Meds: Current Medications Acetaminophen (Tylenol) 650 mg PRN Q6HRS PRN PO PAIN / TEMP Last administered on 08/28/17at 20:59; Start 08/27/17 at 21:15 Multi-Ingredient Ointment (Analgesic [place]) 1 angie PRN QID PRN TP MUSCLE PAIN; Start 08/27/17 at 21:15 Al Hydroxide/Mg Hydroxide (Mylanta Plus Xs) 15 ml PRN AFTMEALHC PRN PO DYSPEPSIA; Start 08/27/17 at 21:15 Magnesium Hydroxide (Milk Of Magnesia) 2,400 mg PRN QHS PRN PO CONSTIPATION Last administered on 09/05/17at 20:56; Start 08/27/17 at 21:15 Olanzapine (ZyPREXA ZYDIS) 2.5 mg PRN Q2HR PRN PO ANXIETY / AGITATION Last administered on 08/28/17at 07:51; Start 08/27/17 at 21:15; Stop 09/06/17 at 18:50 ; Status DC Donepezil HCl (Aricept) 10 mg DAILY PO Last administered on 09/12/17at 08:23; Start 08/28/17 at 09:00 Citalopram Hydrobromide (CeleXA) 40 mg DAILY PO Last administered on 08/28/17at 07:51; Start 08/28/17 at 09:00; Stop 08/28/17 at 20:09; Status DC Memantine (Namenda) 5 mg DAILY PO Last administered on 08/28/17at 07:51; Start 08/28/17 at 09:00; Stop 08/28/17 at 20:09; Status DC Ascorbic Acid (Vitamin C) 500 mg DAILY PO Last administered on 09/12/17 08:24 ; Start 08/29/17 at 09:00 Atorvastatin Calcium (Lipitor) 20 mg QHS PO Last administered on 09/11/17 19: 36; Start 08/28/17 at 21:00 Vitamin D (Vitamin D3) 2,000 unit DAILY PO Last administered on 09/12/17 08:24 ; Start 08/29/17 at 09:00 Aspirin (Children'S Aspirin) 81 mg DAILYWBKFT PO Last administered on 08:24; Start 08/29/17 at 08:00 Cephalexin HCl (Keflex) 500 mg TID PO Last administered on 09/04/17 15:03; Start 08/28/17 at 14:00; Stop 09/04/17 at 14:01; Status DC Folic Acid (Folic Acid) 1 mg DAILY PO Last administered on 09/12/17 08:24; Start 08/29/17 at 09:00 Furosemide (Lasix) 40 mg DAILY PO Last administered on 09/08/17 09:57; Start 08/29/17 at 09:00; Stop 09/09/17 at 17:43; Status DC Losartan Potassium (Cozaar) 100 mg DAILY PO Last administered on 09/10/17 07: 39; Start 08/29/17 at 09:00 Multivitamins/ Calcium (Thera-M Plus) 1 tab DAILY PO Last administered on 08:24; Start 08/29/17 at 09:00 Pantoprazole Sodium (Protonix) 40 mg DAILY PO Last administered on 09/12/17 08 :24; Start 08/29/17 at 09:00 Memantine (Namenda) 5 mg BID PO Last administered on 08/31/17at 08:44; Start at 21:00; Stop 08/31/17 at 14:17; Status DC Quetiapine Fumarate (SEROquel) 12.5 mg BID@0900,1300 PO Last administered on at 14:06; Start 08/29/17 at 09:00; Stop 09/02/17 at 19:27; Status DC Duloxetine HCl (Cymbalta) 30 mg DAILY PO Last administered on 09/08/17at 09:58; Start 08/29/17 at 09:00; Stop 09/08/17 at 12:18; Status DC Lactobacillus Rhamnosus (Culturelle) 1 cap BID PO Last administered on at 08:24; Start 08/29/17 at 21:00 Memantine (Namenda) 10 mg BID PO Last administered on 09/12/17at 08:24; Start at 21:00 Miconazole Nitrate (Monistat-Derm) 1 angie BID TP ; Start 08/31/17 at 21:00; Stop 08/31/17 at 21:00; Status DC Quetiapine Fumarate (SEROquel) 25 mg QHS PO Last administered on 09/01/17at 21: 28; Start 09/01/17 at 21:00; Stop 09/02/17 at 19:27; Status DC Risperidone (RisperDAL) 0.125 mg TID@0900,1300,1700 PO Last administered on at 16:29; Start 09/03/17 at 09:00; Stop 09/06/17 at 18:55; Status DC Trazodone HCl (Desyrel) 50 mg QHS PO Last administered on 09/11/17at 19:37; Start 09/04/17 at 21:15 Risperidone (RisperDAL) 0.5 mg QHS PO Last administered on 09/08/17at 20:13; Start 09/06/17 at 21:00; Stop 09/09/17 at 19:35; Status DC Olanzapine (ZyPREXA ZYDIS) 2.5 mg PRN Q2HR PRN PO psychosis/agitation Last administered on 09/11/17at 19:55; Start 09/06/17 at 19:00 Duloxetine HCl (Cymbalta) 60 mg DAILY PO Last administered on 09/12/17at 08:24; Start 09/09/17 at 09:00 Quetiapine Fumarate (SEROquel) 25 mg QHS PO Last administered on 09/08/17at 20: 14; Start 09/08/17 at 21:00; Stop 09/09/17 at 19:35; Status DC Trazodone HCl (Desyrel) 50 mg 1X ONCE PO Last administered on 09/08/17at 20:12 ; Start 09/08/17 at 20:15; Stop 09/08/17 at 20:17; Status DC Risperidone (RisperDAL) 1 mg HS SL Last administered on 09/11/17at 07:37; Start 09/09/17 at 21:00; Stop 09/12/17 at 19:55; Status DC Risperidone (RisperDAL) 1 mg BID SL ; Start 09/13/17 at 09:00 Active Scripts Active Reported Trazodone Hcl 50 Mg Tablet 50 Mg PO QHS Risperdal (Risperidone) 0.5 Mg Tablet 0.5 Mg PO QHS Olanzapine 5 Mg Tablet 2.5 Mg PO PRN Q2HR PRN Analgesic [place] (Methyl Salicylate/Menthol) 28 Gm Oint...g. 1 Angie TP PRN QID PRN Milk Of Magnesia (Magnesium Hydroxide) 2,400 Mg/10 Ml Oral.susp 2,400 Mg PO PRN QHS PRN Mag-Al Plus Xs Suspension (Mag Hydrox/Al Hydrox/Simeth) 30 Ml Oral.susp 15 Ml PO PRN AFTMEALHC PRN Culturelle Capsule (L. Rhamnosus GG/Inulin) 1 Each Cap.sprink 1 Each PO BID Cymbalta (Duloxetine Hcl) 30 Mg Capsule.dr 30 Mg PO DAILY Tylenol (Acetaminophen) 325 Mg Tablet 650 Mg PO PRN Q6HRS PRN Namenda (Memantine Hcl) 10 Mg Tablet 10 Mg PO BID Cephalexin 500 Mg Capsule 500 Mg PO TIDX7 DAYS Multiple Vitamin (Multivitamin With Minerals) 1 Each Tablet 1 Tab PO DAILY Folic Acid 1 Mg Tablet 1 Mg PO DAILY Vitamin D3 (Cholecalciferol (Vitamin D3)) 1,000 Unit Tablet 2,000 Unit PO DAILY Aspirin 81 Mg Tab.chew 81 Mg PO DAILY Vitamin C (Ascorbic Acid) 500 Mg Tablet 500 Mg PO DAILY Pantoprazole Sodium 40 Mg Tablet.dr 40 Mg PO DAILY Namenda (Memantine Hcl) 5 Mg Tablet 5 Mg PO DAILY Losartan Potassium 100 Mg Tablet 100 Mg PO DAILY Furosemide 40 Mg Tablet 40 Mg PO DAILY Escitalopram Oxalate 20 Mg Tablet 20 Mg PO DAILY Donepezil Hcl 10 Mg Tablet 10 Mg PO DAILY Atorvastatin Calcium 20 Mg Tablet 20 Mg PO QHS I have reviewed the current psychotropics carefully including drug interactions. Risk benefit ratio favors no change other than as noted in my dictated progress note. Diagnosis: Problems: (1) Anxiety disorder (2) Dementia, vascular, with delusions (3) Dementia, vascular, with depression (4) Impulse control disorder (5) Psychosis, atypical (6) Mild cognitive disorder (7) Major depressive disorder, recurrent episode KENDRA PATTON MD September 12, 2017 20:49
[2017-09-12] MEDS: traZODone 50 MG TABLET. PO SCH (21:09)
[2017-09-12] MEDS: ATORVASTATIN CALCIUM 20 MG TABLET PO SCH (21:09)
--- NOTE | 2017-09-12 22:46 | PN ---
DATE: 09/09/2017 PSYCHIATRIC PROGRESS NOTE This is a late entry 09/09/2017, covers elements not covered in my initial note. SUBJECTIVE: I met with the patient in the evening. She is noncompliant with medications and we will change the Risperdal 0.5 mg at bedtime to liquid Risperdal 1 mg at bedtime due to ongoing paranoia suspiciousness and Seroquel 25 mg at bedtime will be stopped to avoid using two atypical antipsychotics together. REVIEW OF SYSTEMS: Ambulation impaired with walker. No CV, , pulmonary, eye, ENT system symptoms on review. Hard of hearing. MENTAL STATUS EXAM: Oriented to herself and situation. Speech coherent, has some latency. Abstraction fair, computation impaired, language function intact. Attention span short. IMPRESSION: Unchanged from initial note. PLAN: Changes noted above. MAN Charli PATTON MD DR: LOBO/rick JOB#: [id number] / [id number]
--- NOTE | 2017-09-12 22:48 | PN ---
DATE: 09/10/2017 PSYCHIATRIC PROGRESS NOTE This is a late entry 09/10/2017 covers elements not covered in my initial note. SUBJECTIVE: I met with the patient in the evening. She slept 6-3/4 hours, was quite hateful in the morning, refused medications and oral feedings. She then received Risperdal at 11 a.m., has been better since then. She did talk to her daughter. REVIEW OF SYSTEMS: Ambulation impaired with walker. No CV, , pulmonary, eye system symptoms on review. MENTAL STATUS EXAM: Oriented to herself and situation. Speech coherent, abstraction fair, computation impaired, language function intact, attention span short. Mood and affect still dysphoric, anxious, somewhat suspicious, less so than before. LABORATORY DATA: Reviewed. IMPRESSION: Unchanged from initial note. PLAN: Continue psychotropics from initial note. MAN Charli PATTON MD DR: LOBO/rick JOB#: [id number] / [id number]
[2017-09-13 06:25] VITALS: BP 111/72
[2017-09-13 09:00] VITALS: BP 111/72
[2017-09-13] MEDS: LOSARTAN 50 MG TABLET. PO SCH (09:00)
[2017-09-13] MEDS ORDERED: risperiDONE ORAL 1 MG/ML 30ml BOTTLE. SL SCH (09:00)
[2017-09-13] MEDS: DULoxetine HCL 60 MG CAPSULE.DR PO SCH (09:49)
[2017-09-13] MEDS: ASPIRIN 81 MG TAB.CHEW PO SCH (09:49)
[2017-09-13] MEDS: MULTIVITAMIN with MINERAL TABLET. PO SCH (09:49)
[2017-09-13] MEDS: DONEPEZIL HCL 10 MG TABLET PO SCH (09:49)
[2017-09-13] MEDS: FOLIC ACID 1 MG TABLET PO SCH (09:49)
[2017-09-13] MEDS: PANTOPRAZOLE 40 MG TABLET. PO SCH (09:49)
[2017-09-13] MEDS: ASCORBIC ACID 500 MG TABLET PO SCH (09:49)
[2017-09-13] MEDS: LACTOBACILLUS RHAMNOSUS GG 1 CAPSULE. PO SCH (09:49)
[2017-09-13] MEDS: CHOLECALCIFEROL (VITAMIN D3) 1,000 UNIT TABLET PO SCH (09:49)
[2017-09-13] MEDS: MEMANTINE 10 MG TABLET. PO SCH (09:49)
--- NOTE | 2017-09-13 20:33 | PDOC ---
Exam Note: Abrahan Note: Please also refer to the separate dictated note~for this date of service dictated separately.~Patient seen individually. Discussed the patient with Nursing staff reviewed the chart.~Reviewed interim history and current functioning. Reviewed vital signs,~Labs/ Radiology~and current medications noted below. Continue current treatment with the changes noted in the dictated addendum note Assessment: Vital Signs: Vital Signs Date Time Temp Pulse Resp B/P (MAP) Pulse Ox O2 Delivery O2 Flow Rate FiO2 09/13/17 09:00 78 111/72 09/13/17 06:25 98.0 20 96 09/09/17 16:29 Room Air I&O Intake and Output 09/13/17 07:00 Intake Total 1080 ml Balance 1080 ml Intake Oral 1080 ml # Bowel Movements 1 Current Medications: Meds: Current Medications Acetaminophen (Tylenol) 650 mg PRN Q6HRS PRN PO PAIN / TEMP Last administered on 08/28/17at 20:59; Start 08/27/17 at 21:15; Stop 09/13/17 at 13:43; Status DC Multi-Ingredient Ointment (Analgesic [place]) 1 angie PRN QID PRN TP MUSCLE PAIN; Start 08/27/17 at 21:15; Stop 09/13/17 at 13:43; Status DC Al Hydroxide/Mg Hydroxide (Mylanta Plus Xs) 15 ml PRN AFTMEALHC PRN PO DYSPEPSIA; Start 08/27/17 at 21:15; Stop 09/13/17 at 13:43; Status DC Magnesium Hydroxide (Milk Of Magnesia) 2,400 mg PRN QHS PRN PO CONSTIPATION Last administered on 09/05/17at 20:56; Start 08/27/17 at 21:15; Stop 09/13/17 at 13:43; Status DC Olanzapine (ZyPREXA ZYDIS) 2.5 mg PRN Q2HR PRN PO ANXIETY / AGITATION Last administered on 08/28/17at 07:51; Start 08/27/17 at 21:15; Stop 09/06/17 at 18:50 ; Status DC Donepezil HCl (Aricept) 10 mg DAILY PO Last administered on 09/13/17at 09:49; Start 08/28/17 at 09:00; Stop 09/13/17 at 13:43; Status DC Citalopram Hydrobromide (CeleXA) 40 mg DAILY PO Last administered on 08/28/17at 07:51; Start 08/28/17 at 09:00; Stop 08/28/17 at 20:09; Status DC Memantine (Namenda) 5 mg DAILY PO Last administered on 08/28/17at 07:51; Start 08/28/17 at 09:00; Stop 08/28/17 at 20:09; Status DC Ascorbic Acid (Vitamin C) 500 mg DAILY PO Last administered on 09/13/17at 09:49 ; Start 08/29/17 at 09:00; Stop 09/13/17 at 13:43; Status DC Atorvastatin Calcium (Lipitor) 20 mg QHS PO Last administered on 09/12/17at 21: 09; Start 08/28/17 at 21:00; Stop 09/13/17 at 13:43; Status DC Vitamin D (Vitamin D3) 2,000 unit DAILY PO Last administered on 09/13/17at 09:49 ; Start 08/29/17 at 09:00; Stop 09/13/17 at 13:43; Status DC Aspirin (Children'S Aspirin) 81 mg DAILYWBKFT PO Last administered on at 09:49; Start 08/29/17 at 08:00; Stop 09/13/17 at 13:43; Status DC Cephalexin HCl (Keflex) 500 mg TID PO Last administered on 09/04/17at 15:03; Start 08/28/17 at 14:00; Stop 09/04/17 at 14:01; Status DC Folic Acid (Folic Acid) 1 mg DAILY PO Last administered on 09/13/17at 09:49; Start 08/29/17 at 09:00; Stop 09/13/17 at 13:43; Status DC Furosemide (Lasix) 40 mg DAILY PO Last administered on 09/08/17at 09:57; Start 08/29/17 at 09:00; Stop 09/09/17 at 17:43; Status DC Losartan Potassium (Cozaar) 100 mg DAILY PO Last administered on 09/10/17at 07: 39; Start 08/29/17 at 09:00; Stop 09/13/17 at 13:43; Status DC Multivitamins/ Calcium (Thera-M Plus) 1 tab DAILY PO Last administered on at 09:49; Start 08/29/17 at 09:00; Stop 09/13/17 at 13:43; Status DC Pantoprazole Sodium (Protonix) 40 mg DAILY PO Last administered on 09/13/17at 09 :49; Start 08/29/17 at 09:00; Stop 09/13/17 at 13:43; Status DC Memantine (Namenda) 5 mg BID PO Last administered on 08/31/17at 08:44; Start at 21:00; Stop 08/31/17 at 14:17; Status DC Quetiapine Fumarate (SEROquel) 12.5 mg BID@0900,1300 PO Last administered on at 14:06; Start 08/29/17 at 09:00; Stop 09/02/17 at 19:27; Status DC Duloxetine HCl (Cymbalta) 30 mg DAILY PO Last administered on 09/08/17at 09:58; Start 08/29/17 at 09:00; Stop 09/08/17 at 12:18; Status DC Lactobacillus Rhamnosus (Culturelle) 1 cap BID PO Last administered on at 09:49; Start 08/29/17 at 21:00; Stop 09/13/17 at 13:43; Status DC Memantine (Namenda) 10 mg BID PO Last administered on 09/13/17at 09:49; Start at 21:00; Stop 09/13/17 at 13:43; Status DC Miconazole Nitrate (Monistat-Derm) 1 angie BID TP ; Start 08/31/17 at 21:00; Stop 08/31/17 at 21:00; Status DC Quetiapine Fumarate (SEROquel) 25 mg QHS PO Last administered on 09/01/17at 21: 28; Start 09/01/17 at 21:00; Stop 09/02/17 at 19:27; Status DC Risperidone (RisperDAL) 0.125 mg TID@0900,1300,1700 PO Last administered on at 16:29; Start 09/03/17 at 09:00; Stop 09/06/17 at 18:55; Status DC Trazodone HCl (Desyrel) 50 mg QHS PO Last administered on 09/12/17 21:09; Start 09/04/17 at 21:15; Stop 09/13/17 at 13:43; Status DC Risperidone (RisperDAL) 0.5 mg QHS PO Last administered on 09/08/17at 20:13; Start 09/06/17 at 21:00; Stop 09/09/17 at 19:35; Status DC Olanzapine (ZyPREXA ZYDIS) 2.5 mg PRN Q2HR PRN PO psychosis/agitation Last administered on 09/11/17at 19:55; Start 09/06/17 at 19:00; Stop 09/13/17 at 13:43 ; Status DC Duloxetine HCl (Cymbalta) 60 mg DAILY PO Last administered on 09/13/17at 09:49; Start 09/09/17 at 09:00; Stop 09/13/17 at 13:43; Status DC Quetiapine Fumarate (SEROquel) 25 mg QHS PO Last administered on 09/08/17at 20: 14; Start 09/08/17 at 21:00; Stop 09/09/17 at 19:35; Status DC Trazodone HCl (Desyrel) 50 mg 1X ONCE PO Last administered on 09/08/17at 20:12 ; Start 09/08/17 at 20:15; Stop 09/08/17 at 20:17; Status DC Risperidone (RisperDAL) 1 mg HS SL Last administered on 09/11/17at 07:37; Start 09/09/17 at 21:00; Stop 09/12/17 at 19:55; Status DC Risperidone (RisperDAL) 1 mg BID SL Last administered on 09/13/17at 09:54; Start 09/13/17 at 09:00; Stop 09/13/17 at 13:43; Status DC Active Scripts Active Reported Trazodone Hcl 50 Mg Tablet 50 Mg PO QHS May repeat 1X Risperdal (Risperidone) 0.5 Mg Tablet 1 Mg SL BID Olanzapine 5 Mg Tablet 2.5 Mg PO PRN Q2HR PRN Analgesic [place] (Methyl Salicylate/Menthol) 28 Gm Oint...g. 1 Angie TP PRN QID PRN Milk Of Magnesia (Magnesium Hydroxide) 2,400 Mg/10 Ml Oral.susp 2,400 Mg PO PRN QHS PRN Mag-Al Plus Xs Suspension (Mag Hydrox/Al Hydrox/Simeth) 30 Ml Oral.susp 15 Ml PO PRN AFTMEALHC PRN Culturelle Capsule (L. Rhamnosus GG/Inulin) 1 Each Cap.sprink 1 Each PO BID Cymbalta (Duloxetine Hcl) 30 Mg Capsule.dr 60 Mg PO DAILY Tylenol (Acetaminophen) 325 Mg Tablet 650 Mg PO PRN Q6HRS PRN Namenda (Memantine Hcl) 10 Mg Tablet 10 Mg PO BID Multiple Vitamin (Multivitamin With Minerals) 1 Each Tablet 1 Tab PO DAILY Folic Acid 1 Mg Tablet 1 Mg PO DAILY Vitamin D3 (Cholecalciferol (Vitamin D3)) 1,000 Unit Tablet 2,000 Unit PO DAILY Aspirin 81 Mg Tab.chew 81 Mg PO DAILY Vitamin C (Ascorbic Acid) 500 Mg Tablet 500 Mg PO DAILY Pantoprazole Sodium 40 Mg Tablet.dr 40 Mg PO DAILY Losartan Potassium 100 Mg Tablet 100 Mg PO DAILY Donepezil Hcl 10 Mg Tablet 10 Mg PO DAILY Atorvastatin Calcium 20 Mg Tablet 20 Mg PO QHS I have reviewed the current psychotropics carefully including drug interactions. Risk benefit ratio favors no change other than as noted in my dictated progress note. Diagnosis: Problems: (1) Anxiety disorder (2) Dementia, vascular, with delusions (3) Dementia, vascular, with depression (4) Impulse control disorder (5) Psychosis, atypical (6) Mild cognitive disorder (7) Major depressive disorder, recurrent episode KENDRA PATTON MD September 13, 2017 20:33
--- NOTE | 2017-09-14 12:38 | PN ---
DATE: 09/12/2017 PSYCHIATRIC PROGRESS NOTE This is a late entry 09/12/2017, covers elements not covered in my initial note. SUBJECTIVE: I met with the patient in the evening. 09/12/2017 was the second good day for her with respect to psychosis, agitation. She took her Risperdal in the morning. Nursing staff would like to see if she does better with given the Risperdal twice a day at half the dosage and we will go ahead and change mg twice a day. UA has reflux to culture, will defer to Dr. Kinsey. REVIEW OF SYSTEMS: No CV, , pulmonary, eye system symptoms on review. Gait unsteady with walker. MENTAL STATUS EXAM: Oriented to herself. Insight, judgment, recent and remote memory, attention, concentration, fund of knowledge poor, consistent with her diagnoses. She is psychotic, which is improved and cognition appears worse due to that, but otherwise she is oriented to herself situation. IMPRESSION: Unchanged from initial note. PLAN: Continue current psychotropics from initial note with changes noted above. KENDRA PATTON MD DR: LOBO/rick JOB#: [id number] / [id number]
--- NOTE | 2017-09-14 13:10 | PN ---
DATE: 09/11/2017 PSYCHIATRIC PROGRESS NOTE This late entry 09/11/2017 covers elements, not covered in my initial note of 09/11/2017. SUBJECTIVE: I met with the patient in the evening. The patient is being hateful in the morning, got Risperdal and coffee in the morning, but lunchtime she was very pleasant and compliant with medications; evening, she was delusional, grandiose again. UA has reflux to culture. REVIEW OF SYSTEMS: No CV, , pulmonary, eye system symptoms on review. Gait unsteady with walker. MENTAL STATUS EXAM: Oriented to herself and situation. Speech coherent, has some latency. Abstraction fair, computation impaired, language function intact, attention span short. Mood and affect, lability is improved. LABORATORY DATA: Reviewed. IMPRESSION: Unchanged from initial note. PLAN: No change from initial note. Address UTI if positive with Dr. Kinsey. MAN Charli PATTON MD DR: LOBO/rick JOB#: [id number] / [id number]
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
== END 2017-09-13 13:43 | DRG 885 ==
LOC: GEROPSY 18:26
PROVIDERS: ADMIT Psychiatry & Neurology Psychiatry; ATTEND Psychiatry & Neurology Psychiatry
DX: F33.3 Major depressive disorder, recurrent, severe with psychotic symptoms (principal); G30.9 Alzheimer's disease, unspecified; F01.51 Vascular dementia, unspecified severity, with behavioral disturbance; F02.81 Dementia in other diseases classified elsewhere, unspecified severity, with behavioral disturbance; E78.5 Hyperlipidemia, unspecified; F63.9 Impulse disorder, unspecified; F41.9 Anxiety disorder, unspecified; Z79.899 Other long term (current) drug therapy; Z91.14 Patient's other noncompliance with medication regimen; Z88.5 Allergy status to narcotic agent; Z88.2 Allergy status to sulfonamides; Z88.0 Allergy status to penicillin; Z87.440 Personal history of urinary (tract) infections
CPT/HCPCS: 36415; 80053; 80061; 81001; 82306; 82607; 82977; 83036; 83540; 83550; 83735; 84436; 84443; 84480; 85025; 86593; 87086; 93005; 93970